=== PATIENT | female | born 1945 | race Caucasian/White ===

== ENCOUNTER → 2023-04-16 06:55 | Outpatient (REF) | payer MEDICARE, OTHER, SELFPAY ==
[2023-04-16 09:05] LABS: % Basophils 0.9 % (0-2); % Eosinophils 0.9 % (0-6); % Immature Granulocytes 1.2 % (0-0.5); % Monocytes 9.7 % (1.7-9.3); % Neutrophils 53.3 % (42.2-75.2); Absolute Basophils 0.1 10^3/uL (0-0.2); Absolute Eosinophils 0.1 10^3/uL (0-0.7); Absolute Immature Granulocytes 0.1 10^3/uL (0-0.05); Absolute Lymphocytes 1.9 10^3/uL (1.2-3.4); Absolute Monocytes 0.6 10^3/uL (0.1-0.6); Nucleated Red Blood Cells % 0 %
[2023-04-16 09:11] LABS: ALT (SGPT) 31 U/L (0-35); AST (SGOT) 33 U/L (14-36); Albumin 4.2 g/dl (3.5-5.0); Alkaline Phosphatase 53 U/L (38-126); Blood Urea Nitrogen 16 mg/dl (7-17); Calcium 9.4 mg/dl (8.4-10.2); Carbon Dioxide 27 mmol/L (22-30); Chloride 101 mmol/L (98-107); Glucose 98 mg/dl (70-99); HDL Cholesterol 78 mg/dl; LDL Cholesterol, Calculated 60 mg/dl; Potassium 4.1 mmol/L (3.5-5.1); Sodium 133 mmol/L (135-145); Total Bilirubin 0.8 mg/dl (0.2-1.3); Total Cholesterol 151 mg/dl (50-199); Total Protein 6.8 g/dl (6.3-8.2); Triglyceride 65 mg/dl (10-149); Very Low Density Lipoprotein 13 mg/dl (0-30); eGFR > 60.00
[2023-04-16 09:39] LABS: TSH Reflex To Free T4 1.99 uIU/ml (0.47-4.68)
[2023-04-16 10:11] LABS: Hematocrit 32.4 % (37.0-47.0); Hemoglobin 10.5 g/dL (12.0-16.0); Red Blood Cell Count 4.74 10^6/uL (4.20-5.40); White Blood Cell Count 7.2 10^3/uL (4.8-10.8)
[2023-04-16 10:12] LABS: Mean Corp Hgb Conc. 32.4 g/dL (33.0-37.0); Mean Corpuscular Hgb 22.2 pg (27.0-31.0); Mean Corpuscular Volume 68.4 fL (81.0-99.0); Mean Platelet Volume 10.1 fL (7.4-10.4); Platelet Count 330 10^3/uL (130-400); Red Cell Dist. Width 17.8 % (11.5-14.5)
== END ==
LOC: HWLAB 06:55
PROVIDERS: ATTENDING PHYSICIAN Nurse Practitioner Adult Health
DX: E78.00 Pure hypercholesterolemia, unspecified (principal); D56.9 Thalassemia, unspecified; E03.9 Hypothyroidism, unspecified
CPT/HCPCS: 36415; 80053; 80061; 84443; 85025

== ENCOUNTER → 2023-07-05 07:57 | Outpatient (REF) | payer MEDICARE, OTHER, SELFPAY | LOC: DHCBC/DCA 07:57 | PROVIDERS: ATTENDING PHYSICIAN Internal Medicine Cardiovascular Disease; FAMILY PHYSICIAN Nurse Practitioner Adult Health | DX: Z01.810 Encounter for preprocedural cardiovascular examination (principal); I10 Essential (primary) hypertension; D64.89 Other specified anemias; I25.10 Atherosclerotic heart disease of native coronary artery without angina pectoris; I25.84 Coronary atherosclerosis due to calcified coronary lesion | CPT/HCPCS: 78452; 93017; A9500; J2785 ==

== ENCOUNTER 2023-10-10 09:47 | Inpatient (IN) | payer MEDICARE, OTHER, SELFPAY ==
--- NOTE | 2023-09-05 11:15 | CM ---
Patient is scheduled for an elective R TKR on 10/10/23. Spoke with patient prior to surgery via telephone. Introduced role of Orthopedic Navigator. Patient reports that she lives with her sister in a bi level home. There are no steps to enter and
then eight (4-4) steps to all living areas. She may stay on the entry engineer. She currently functions independently. She has no DME and has never had VN services. PCP is Lashell Childress.
Discussed orthopedic program and post surgical plans. Reviewed anticipated length of stay and that goal is for her to return home at discharge. Also reviewed outpatient PT. Patient is in agreement with tentative plan and will go directly to
outpatient PT at [facility], [place]. She will have support from her sister and neighbor when she goes home.
Patient will complete online education.
Plan: Orthopedic Navigator will remain available to assist with the care of patient and will reassess discharge needs after surgery.
[2023-09-13 09:53] LABS: ALT (SGPT) 23 U/L (0-35); AST (SGOT) 29 U/L (14-36); Albumin 4.7 g/dl (3.5-5.0); Alkaline Phosphatase 51 U/L (38-126); Blood Urea Nitrogen 13 mg/dl (7-17); Calcium 10.1 mg/dl (8.4-10.2); Carbon Dioxide 27 mmol/L (22-30); Chloride 100 mmol/L (98-107); Glucose 87 mg/dl (70-99); Potassium 5.3 mmol/L (3.5-5.1); Sodium 135 mmol/L (135-145); Total Bilirubin 0.8 mg/dl (0.2-1.3); Total Protein 6.9 g/dl (6.3-8.2); eGFR > 60.00
[2023-09-13 12:35] LABS: Hematocrit 32.1 % (37.0-47.0); Mean Corp Hgb Conc. 31.8 g/dL (33.0-37.0); Mean Corpuscular Hgb 22.4 pg (27.0-31.0); Mean Corpuscular Volume 70.5 fL (81.0-99.0); Red Blood Cell Count 4.55 10^6/uL (4.20-5.40); Red Cell Dist. Width 17.1 % (11.5-14.5); White Blood Cell Count 7.1 10^3/uL (4.8-10.8)
[2023-09-13 12:36] LABS: Platelet Count 286 10^3/uL (130-400)
[2023-09-13 12:37] LABS: Hemoglobin 10.2 g/dL (12.0-16.0)
[2023-09-13 13:24] VITALS: BMI 29.2
[2023-10-04 12:45] VITALS: BMI 29.2
[2023-10-10] VITALS (12 sets, daily range): BP systolic 102–165; BP diastolic 54–97; PULSE 72–86; BMI 29.2
[2023-10-10] MEDS: TYLENOL 650 MG PO ×4 (08:59→23:16)
[2023-10-10] MEDS: NORMOSOL-R 1000 IV ×2 (09:00→13:57)
[2023-10-10] MEDS: MOBIC 15 MG PO (09:00)
--- NOTE | 2023-10-10 09:34 | PTCARENOTE ---
called pharmacy at 09, spoke to James. Requested patient's humate P to [facility] at 0930, was told that wouldn't be an issue.
--- NOTE | 2023-10-10 09:36 | PTCARENOTE ---
Called pharmacy regarding the Humate-P infuion and spoke with Rachelle. Reports it is still being mixed and is currently compounding and should arrive to the unit soon.
[2023-10-10 10:01] LABS: APTT 27.7 Sec (23.4-35.0); INR 1.07; PT 13.9 Sec (11.4-14.6)
[2023-10-10] MEDS: HUMATE-P (FACTOR VIII/VON WILLEBRAND) 20 UNIT IV ×2 (10:09→22:50)
[2023-10-10 12:23] LABS: Glycohemoglobin (HgbA1c) 5.2 % (4.0-5.6)
[2023-10-10] MEDS: DILAUDID 0.25 MG IV ×2 (13:34→14:15)
[2023-10-10] MEDS: DILAUDID 0.5 MG IV (13:48)
[2023-10-10] MEDS: ROXICODONE 5 MG PO (14:01)
--- NOTE | 2023-10-10 15:01 | PTCARENOTE ---
Patient admitted from [facility] post total right knee replacement.The patient rates her pain at a 5 out of 10.Vital signs are stable.Neurovascular assessment is within normal limits and ongoing.The right knee dressing is intact without drainage.The
patient is in her bed with the call roberson in reach.
--- NOTE | 2023-10-10 15:34 | OR.RPT ---
Operative Report
Operative Report
Orthopaedic Surgery Operative Note
DATE OF OPERATION: 10/10/2023
PREOPERATIVE DIAGNOSES: Osteoarthritis, right knee.
POSTOPERATIVE DIAGNOSES: Osteoarthritis, right knee.
OPERATION PERFORMED:
1) Right total knee arthroplasty (CPT 87852)
2) Intraosseous administration of analgesic (CPT 72755)
SURGEON: Pedrito Stone MD
ASSISTANTS: Wesley Geurrero PA-C who helped with patient and limb positioning and retraction
ANESTHESIA: General by anesthesia plus intraoperative infusion of morphine into the tibial metaphysis by Dr. Stone
COMPLICATIONS: None.
ESTIMATED BLOOD LOSS: 30mL
DRAINS: None
TOURNIQUET TIME: 48 minutes.
IMPLANTS:
- Deon Persona CR Femur, size 7
- Deon Persona tibia base plate, size D
- Deon Persona ultracongruent articular surface, 12 mm
- DJO [place] bone cement
INDICATIONS: The patient presented to my office with debilitating right knee pain due to osteoarthritis. We reviewed the natural history of this problem, as well as the risks, benefits, and alternatives of various treatment options. The patient
exhausted all nonoperative treatment options and wished to proceed with knee replacement surgery. The patient understood the risks which included, but were not limited to, bleeding, infection, failure to relieve pain, more pain than preop, damage to
blood vessels and nerves, need for reoperation, mechanical failure of the implants, wound healing problems, stiffness, instability, blood clot, pulmonary embolism, myocardial infarction, pneumonia, arrhythmia, CVA, and . The patient accepted
these risks and wished to proceed. All questions were answered, and informed consent was obtained.
PROCEDURE IN DETAIL: The patient was identified in the preoperative holding area. The right knee was identified as the operative site. The patient was taken in the operating room and placed in a supine position on the operating table. General
anesthesia was performed. IV antibiotics and tranexamic acid were administered. An SCD was placed on the left lower extremity. A well-padded tourniquet was placed on the proximal thigh. All bony prominences were well padded. The right lower
extremity was prepped and draped in the usual sterile fashion.
We performed a surgical time-out. An interarticular block was performed with local anesthetic with epinephrine. The limb was exsanguinated with an Esmarch bandage, then the tourniquet was inflated to 250 mmHg. I performed interosseous administration
of morphine-saline solution via a Jamshidi style intraosseous needle into the proximal medial tibial metaphysis as described by John Beauchamp MD. This was performed to aid in pain control. A midline skin incision was made followed by a medial
parapatellar arthrotomy. A subperiosteal peel was performed on the medial tibia. I excised part of the infrapatellar fat pad to improve our visualization as well as tissue over anterior femur. The patella was everted and the knee was flexed. I
excised the remnants of the anterior and posterior cruciate ligaments as well as tibial and femoral osteophytes with rongeurs.
The knee was flexed, and the extramedullary tibial cutting guide was aligned. Jay was aligned at neutral, rotation was centered on the tibial tubercle, and coronal alignment was aligned with the mechanical axis of the tibia and center of the ankle
joint. The cut height was 10mm off the lateral tibia joint surface. The guide was secured into place. The MCL and LCL were protected. The tibia surface was cut. The cut surface was inspected after removal to ensure appropriate height and slope based
on the preoperative plan. The cut was checked with a drop fausto. It was centered nicely at the ankle.
A drill was used to open the femoral canal. The intramedullary distal femoral cutting guide was inserted into the femur. This was set at 5 degrees +0. This was secured into place with three pins. The cut level was checked with an ana wing. The
distal femur was cut through the cutting guide. The IM guide was reinserted to double check that the level of resection was flush and in appropriate alignment.
Kulwant�s line and the transepicondylar axis were marked on the femur. The femoral sizing guide was applied to the anterior femur. Pins were inserted, and the 4-in-1 cutting guide was applied and secured into place. The rotation was compared to
Oxford�s line, the transepicondylar axis, and the neutral tibia cut and was found to be appropriate. The width was checked and found to be appropriate and lateralized on the femur. The anterior, posterior, and chamfur cuts were made. A lamina
black top spreader machine operator was used to open the flexion gap, and posterior osteophytes were removed with a curved osteotome. The remnant medial and lateral meniscus were also removed. I prophylactically cauterized the lateral geniculate arteries. A 10mm spacer block
was applied to the flexion gap and was noted to be balanced medially and laterally. The knee was extended, and the block showed symmetric to extension and flexion gaps.
The tibia was exposed and sized. Rotation was set in line with the tibial tubercle and congruent with the femur. The trial was secured into place with two pins. The trial femur was impacted into place, and a trial articular surface was placed. The
knee was taken through range of motion and noted to be stable throughout the arc of motion without gaping or excess tension. The patella tracked centrally throughout the arc of motion without need for further releases. No full thickness cartilage
loss on patella. It was oblonge and too small for the 29mm patellar component but also otherwise appropriate for unresurfaced.
The trials were removed. The tibia keel was prepared with the punch and the drill. The bone surfaces were irrigated with sterile saline and dried. The cement was mixed in a vacuum mixer. Cement gun was used to apply cement to the tibial surface and
the undersurface of the tibial implant. Cement was pressurized into the tibial canal and tibia surface. The tibial component was impacted into place. Excess cement was removed. Cement was applied to the femoral surface and the femoral component. The
femoral component was impacted into place, and excess cement removed. A trial articular surface was inserted, and the knee was extended while the cement polymerized. The tourniquet was let down, and meticulous hemostasis was achieved. Dilute
betadine was poured into the wound and allowed to soak for 3 minutes. The knee was irrigated with copious normal saline.
Once the cement was polymerized, the trial articular surface was removed. Any excess cement was removed. The knee was trialed, and the final articular surface was selected and inserted into the tibial locking mechanism. The knee was reduced. A fresh
drape was applied to the surgical field.
The arthrotomy was closed with 0-PDS. Once closed, an interarticular block was performed with local anesthetic with epi. The deep dermal layer was closed with 2-0 PDS, and the subcuticular skin was closed with 3-0 monocryl. A Dermabond Prineo
dressing was applied to the skin in full flexion. Once this was completely dry, a sterile waterproof dressing was applied.
The anesthesia team performed an adductor canal block in the OR. The patient awoke from anesthesia without any difficulties. The sponge and instrument counts were correct x2 at the end of the case.
Tae Stone MD
--- NOTE | 2023-10-10 16:39 | W.DS.TRANS ---
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
-
Discharge Instructions:
Sleep Apnea Risk Low
Discharge Diagnosis/Procedures R TKA Dr. Stone 10/10/23
Diet As tolerated
Activity With Walker
Driving Restrictions No driving
Bathing Restrictions OK to Shower
Instructions:
Stand-Alone Forms: Total Hip/Knee Replacement D/C
Changes to Home Medications: Yes
Discharge Medications:
DC Medications w/original date entered in [facility]
lisinopril 40 mg tablet 40 mg PO DAILY 05/24/19
rosuvastatin 5 mg tablet 5 mg PO DAILY 05/24/19
levothyroxine 75 mcg tablet (Synthroid) 2 mcg PO SAN 10/03/23
levothyroxine 75 mcg tablet (Synthroid) 75 mcg PO DAILY 10/03/23
metoprolol succinate 25 mg tablet,extended release 24 hr 50 mg PO DAILY 10/03/23
mupirocin 2 % ointment topical kit 1 applic topical BID 10/03/23
acetaminophen 325 mg capsule (Tylenol) 650 mg (2 x 325 mg) PO QID #2 caps 10/10/23
aspirin 81 mg tablet,delayed release 81 mg PO BID Blood clot prevention/tx #1 tab 10/10/23
dexamethasone 4 mg tablet 4 mg PO BID inflammation #6 tabs 10/10/23
docusate sodium 100 mg capsule (Colace) 100 mg PO BID stool softner #1 cap 10/10/23
hydromorphone 2 mg tablet 2 - 4 mg (1 - 2 x 2 mg) PO Q6H PRN 1 tab moderate pain, 2 severe #30 tabs 10/10/23
magnesium hydroxide 400 mg/5 mL oral suspension (Milk of Magnesia) 30 ml PO HS PRN Constipation #1 mL 10/10/23
ondansetron 4 mg disintegrating tablet 4 mg PO Q6H PRN n/v #20 tabs 10/10/23
sennosides 8.6 mg tablet (Senokot) 17.2 mg (2 x 8.6 mg) PO BID laxative #2 tabs 10/10/23
Home Medication Changes
aspirin 81 mg tablet,delayed release 81 mg PO BID Blood clot prevention/tx #1 tab 10/10/23�
dexamethasone 4 mg tablet 4 mg PO BID inflammation #6 tabs 10/10/23�
hydromorphone 2 mg tablet 2 - 4 mg (1 - 2 x 2 mg) PO Q6H PRN 1 tab moderate pain, 2 severe #30 tabs 10/10/23�
ondansetron 4 mg disintegrating tablet 4 mg PO Q6H PRN n/v #20 tabs 10/10/23�
Pending Results: No
[2023-10-10] MEDS: CRESTOR 5 MG PO (17:09)
[2023-10-10] MEDS: ZOFRAN 4 MG IV (17:13)
[2023-10-10 18:43] LABS: Hepatitis C Antibody Negative (Negative)
[2023-10-10] MEDS: BACTROBAN 2% OINTMENT 1 APPLIC NASAL (20:19)
[2023-10-10] MEDS: ANCEF 5 IV (20:20)
[2023-10-10] MEDS: DECADRON 4 MG PO (20:20)
[2023-10-10] MEDS: SENOKOT 17.2 MG PO (20:22)
[2023-10-10] MEDS: COLACE 100 MG PO (20:22)
[2023-10-10] MEDS: NEURONTIN 300 MG PO (21:07)
[2023-10-10] MEDS: COMPAZINE 5 MG PO (21:07)
[2023-10-11] MEDS: MAALOX 30 ML PO (00:22)
[2023-10-11 03:33] VITALS: BP 115/65
[2023-10-11] MEDS: TYLENOL 650 MG PO ×4 (04:37→16:38)
[2023-10-11] MEDS: ANCEF 5 IV (04:38)
[2023-10-11] MEDS: SYNTHROID 75 MCG PO (05:10)
[2023-10-11 07:00] VITALS: BP 114/67
[2023-10-11 08:05] LABS: Hematocrit 22.9 % (37.0-47.0); Hemoglobin 7.6 g/dL (12.0-16.0); Mean Corp Hgb Conc. 33.2 g/dL (33.0-37.0); Mean Corpuscular Hgb 22.8 pg (27.0-31.0); Mean Corpuscular Volume 68.8 fL (81.0-99.0); Mean Platelet Volume 10.4 fL (7.4-10.4); Platelet Count 222 10^3/uL (130-400); Red Blood Cell Count 3.33 10^6/uL (4.20-5.40); Red Cell Dist. Width 15.9 % (11.5-14.5); White Blood Cell Count 15.7 10^3/uL (4.8-10.8)
[2023-10-11] MEDS: ASPIRIN 325 MG PO (08:36)
[2023-10-11] MEDS: CRESTOR 5 MG PO (08:36)
[2023-10-11] MEDS: SENOKOT 17.2 MG PO (08:36)
[2023-10-11] MEDS: TORADOL 10 MG IV (08:37)
[2023-10-11] MEDS: COLACE 100 MG PO (08:37)
[2023-10-11] MEDS: BACTROBAN 2% OINTMENT 1 APPLIC NASAL (08:38)
[2023-10-11] MEDS: DECADRON 4 MG PO (08:39)
[2023-10-11] MEDS: ROXICODONE 5 MG PO ×2 (08:45→16:38)
[2023-10-11] MEDS: HUMATE-P (FACTOR VIII/VON WILLEBRAND) 20 UNIT IV (10:55)
[2023-10-11 11:00] VITALS: BP 119/64
[2023-10-11 11:01] VITALS: BP 122/55
[2023-10-11 15:00] VITALS: BP 121/65
--- NOTE | 2023-10-11 15:59 | W.PN.ORTHO ---
Today's Communication / Plan
-
d/c
Assessment
.
Distal Motor Intact: Yes
Dressing:
Clean, dry and intact.
Assessment:
von Willebrand-s/p Humate
-hgb decreasd from baseline but patient is hemodynamically stable, asymptomatic with no bleeding from incision
-we will avoid transfusion at this time given surgeon reported reaction to blood products and lack of symptoms/clinical indication
-d/c with repeat hgb outpatient
Plan
.
Surgery / Date: R TKA Dr. Stone 10/10/23
DVT Prophylaxis: Aspirin (81mg bid)
Activity:
Out of bed.
PT/OT
Discharge Plan: Home w/ Outpatient PT
Subjective
.
.:
Patient resting comfortably.
Vital Signs and Labs
.
Vital Signs and Labs:
Lab Results
10/11/23 06:34
09/13/23 06:24
Temp Pulse Resp BP Pulse Ox
98.5 F 67 16 121/65 97
10/11/23 15:00 10/11/23 15:00 10/11/23 15:00 10/11/23 15:00 10/11/23 15:00
PT 13.9 Sec (11.4-14.6) 10/10/23 09:28
INR 1.07 10/10/23 09:28
Non-invasive Hgb result: 9.7
Physical Exam
-
HEENT: No pallor, cyanosis, or jaundice. Throat clear.
NECK: Supple. No JVD.
RESPIRATORY: Lungs clear to auscultation.
CVS: S1, S2 normal. RRR.� No murmur, rub or gallop.
ABDOMEN: Soft, non-tender. No distension. BS+/normal.
EXTREMITIES: strength equal, no calf pain with palpation-no drainage aquacell
CAR INSPECTION AND REPAIR MANAGER: AOx3. No focal deficits. machine room operator grossly intact
--- NOTE | 2023-10-11 16:02 | CM ---
Addendum entered by Faith Ruelas 10/11/23 16:43:
Discharge today
Original Note:
Met with patient and her sister at the bedside; initial assessment and case management consult completed
IMM benefit explained; form signed @ 1224
Pharmacy verified: [facility] @ [address] [place] [address]
Patient reported that she lives with her sister; multilevel home; enters via garage then 12 steps up to main floor; powder room on the 1st floor; 2nd floor bath has stall shower
PLOF: patient reported that she was independent w/ADLs; ambulated with a cane; steps were a challenge; retired; does not drive
DME: cane and a RW that she was not using before hospitalization
SNF/Home Health utilization history: none
Transportation: sister will provide ride home
Plans to sleep on the sofa in the living room for the 1st week post-op
Plan: discharge to sister's home with script for Outpatient Therapy
== END 2023-10-11 16:55 | disposition home or self-care (01) | DRG 470 ==
LOC: 2 SOUTH 09:47
PROVIDERS: Physician Assistant Medical; Student in an Organized Health Care Education/Training Program; ADMITTING PHYSICIAN Orthopaedic Surgery; FAMILY PHYSICIAN Nurse Practitioner Adult Health
PROC: 0SRC0J9 Replacement of Right Knee Joint with Synthetic Substitute, Cemented, Open Approach (ICD-10-PCS; 2023-10-10)
DX: M17.11 Unilateral primary osteoarthritis, right knee (principal); D68.00 Von Willebrand disease, unspecified; I10 Essential (primary) hypertension; E05.00 Thyrotoxicosis with diffuse goiter without thyrotoxic crisis or storm; F41.9 Anxiety disorder, unspecified; M48.061 Spinal stenosis, lumbar region without neurogenic claudication; Z79.52 Long term (current) use of systemic steroids; Z79.82 Long term (current) use of aspirin; Z79.890 Hormone replacement therapy; Z79.899 Other long term (current) drug therapy; Z85.72 Personal history of non-Hodgkin lymphomas; Z92.21 Personal history of antineoplastic chemotherapy; Z92.3 Personal history of irradiation; Z87.11 Personal history of peptic ulcer disease; Z86.16 Personal history of COVID-19; Z87.891 Personal history of nicotine dependence; Z82.49 Family history of ischemic heart disease and other diseases of the circulatory system; Z83.2 Family history of diseases of the blood and blood-forming organs and certain disorders involving the immune mechanism
CPT/HCPCS: 73560; 80053; 83036; 85027; 85610; 85730; 86803; 86850; 86900; 86901; 87070; 97116; 97162; 97166; 97535; C1713; C1776; J7183

== ENCOUNTER → 2023-12-17 07:06 | Outpatient (REF) | payer MEDICARE, OTHER, SELFPAY ==
[2023-12-17 10:05] LABS: ALT (SGPT) 20 U/L (0-35); AST (SGOT) 23 U/L (14-36); Albumin 4.5 g/dl (3.5-5.0); Alkaline Phosphatase 50 U/L (38-126); Blood Urea Nitrogen 16 mg/dl (7-17); Carbon Dioxide 29 mmol/L (22-30); Chloride 98 mmol/L (98-107); Glucose 95 mg/dl (70-99); HDL Cholesterol 42 mg/dl; LDL Cholesterol, Calculated 81 mg/dl; Potassium 4.8 mmol/L (3.5-5.1); Sodium 136 mmol/L (135-145); Total Bilirubin 0.3 mg/dl (0.2-1.3); Total Cholesterol 151 mg/dl (50-199); Total Protein 7.1 g/dl (6.3-8.2); Triglyceride 140 mg/dl (10-149); Very Low Density Lipoprotein 28 mg/dl (0-30); eGFR > 60.00
[2023-12-17 10:23] LABS: Vitamin D, 25-OH*** 45.5 ng/mL (30-80)
[2023-12-17 10:36] LABS: TSH Reflex To Free T4 0.31 uIU/ml (0.47-4.68)
[2023-12-17 11:15] LABS: Free T4 1.72 ng/dl (0.78-2.19)
[2023-12-17 11:30] LABS: % Basophils 0.9 % (0-2); % Immature Granulocytes 0.5 % (0-0.5); % Lymphocytes 36.8 % (20.5-51.1); % Monocytes 12.6 % (1.7-9.3); % Neutrophils 47.2 % (42.2-75.2); Absolute Basophils 0.1 10^3/uL (0-0.2); Absolute Eosinophils 0.1 10^3/uL (0-0.7); Absolute Lymphocytes 2.3 10^3/uL (1.2-3.4); Absolute Monocytes 0.8 10^3/uL (0.1-0.6); Hematocrit 33.3 % (37.0-47.0); Hemoglobin 10.4 g/dL (12.0-16.0); Mean Corp Hgb Conc. 31.2 g/dL (33.0-37.0); Mean Corpuscular Hgb 20.6 pg (27.0-31.0); Mean Corpuscular Volume 65.8 fL (81.0-99.0); Mean Platelet Volume 10.2 fL (7.4-10.4); Nucleated Red Blood Cells % 0 %; Platelet Count 337 10^3/uL (130-400); Red Blood Cell Count 5.06 10^6/uL (4.20-5.40); Red Cell Dist. Width 15.4 % (11.5-14.5); White Blood Cell Count 6.4 10^3/uL (4.8-10.8)
== END ==
LOC: HWLAB 07:06
PROVIDERS: ATTENDING PHYSICIAN Nurse Practitioner Adult Health
DX: E03.9 Hypothyroidism, unspecified (principal); E55.9 Vitamin D deficiency, unspecified; Z86.39 Personal history of other endocrine, nutritional and metabolic disease; R00.0 Tachycardia, unspecified
CPT/HCPCS: 36415; 80053; 80061; 82306; 84439; 84443; 85025

== ENCOUNTER 2024-01-16 20:24 | Inpatient (IN) | payer MEDICARE, OTHER, SELFPAY ==
[2024-01-16 17:48] VITALS: BP 150/94
[2024-01-16 18:28] LABS: PT 13.7 Sec (11.4-14.6)
[2024-01-16 18:29] LABS: APTT 32.1 Sec (23.4-35.0)
[2024-01-16 18:34] LABS: ALT (SGPT) 17 U/L (0-35); AST (SGOT) 23 U/L (14-36); Albumin 4.5 g/dl (3.5-5.0); Alkaline Phosphatase 65 U/L (38-126); Blood Urea Nitrogen 16 mg/dl (7-17); Calcium 9.8 mg/dl (8.4-10.2); Carbon Dioxide 23 mmol/L (22-30); Chloride 98 mmol/L (98-107); Glucose 86 mg/dl (70-99); Potassium 4.1 mmol/L (3.5-5.1); Sodium 135 mmol/L (135-145); Total Bilirubin 0.4 mg/dl (0.2-1.3); Total Protein 7.3 g/dl (6.3-8.2); eGFR > 60.00
[2024-01-16 19:02] LABS: % Basophils 0.7 % (0-2); % Eosinophils 0.9 % (0-6); % Immature Granulocytes 0.6 % (0-0.5); % Lymphocytes 30.6 % (20.5-51.1); % Monocytes 12.5 % (1.7-9.3); % Neutrophils 54.7 % (42.2-75.2); Absolute Basophils 0.1 10^3/uL (0-0.2); Absolute Eosinophils 0.1 10^3/uL (0-0.7); Absolute Immature Granulocytes 0.1 10^3/uL (0-0.05); Absolute Lymphocytes 2.8 10^3/uL (1.2-3.4); Absolute Monocytes 1.1 10^3/uL (0.1-0.6); Absolute Neutrophils 4.9 10^3/uL (1.4-6.5); Hematocrit 31.3 % (37.0-47.0); Hemoglobin 9.9 g/dL (12.0-16.0); Mean Corp Hgb Conc. 31.6 g/dL (33.0-37.0); Mean Corpuscular Hgb 20.4 pg (27.0-31.0); Mean Corpuscular Volume 64.5 fL (81.0-99.0); Mean Platelet Volume 9.6 fL (7.4-10.4); Nucleated Red Blood Cells % 0 %; Platelet Count 315 10^3/uL (130-400); Red Blood Cell Count 4.85 10^6/uL (4.20-5.40); Red Cell Dist. Width 15.4 % (11.5-14.5)
--- NOTE | 2024-01-16 19:16 | ED.GENMED ---
History of Present Illness
General
Chief Complaint: Cardiac Symptoms
Source: patient and physician
Exam Limitations: none
Time Seen by Provider: 01/16/24 17:54
Nursing documentation reviewed up to this point in time: agreed with
History of Present Illness
History of Present Illness:
78-year-old female presents emergency department due to episodic dizziness. She has had multiple pauses. She is also had atrial fibrillation with RVR. She has had pauses greater than 5 seconds, the longest 6.2 seconds. Patient was directed to
the emergency department by Dr. Fernandez.
Past History
Past History
ED Past Medical History: Arrthythmia, HTN, Hypercholesterolemia and Hypothyroidism
ED Past Surgical History: Orthopedic and Other (Thyroidectomy)
Social History
Tobacco: Non-smoker
Alcohol: Occasional
Drug: None
Personal:
Living: with family
Review of Systems
Review of Systems
Allergies reviewed?: Yes
All Other Systems: Not applicable
Constitutional: Reports no symptoms
EENT: Reports no symptoms
Respiratory: Reports no symptoms
Cardiac: Reports palpitations and syncope
ABD/GI: Reports no symptoms
: Reports no symptoms
Musculoskeletal: Reports no symptoms
Skin: Reports no symptoms
Neurological: Reports dizzy
Endocrine: Reports no symptoms
Hematologic/Lymphatic: Reports no symptoms
Psychiatric: Reports no symptoms
Phy Exam
Physical Exam
Physical Exam:
Physical Exam
General: no apparent distress, not acutely ill
Neck: supple. no meningeal signs. normal posterior pharynx
Heart: s1/s2 regular rate and rhythm, no murmur. equal radial
pulses.
HEENT: Pupils equal round reactive to light, EOMI
Lungs: no acute respiratory distress. clear bilaterally
Abdomen: normal bowel sounds. not tender. no CVAT
Neuro: alert and oriented. no focal neurological deficits cranial nerves II through XII intact
Skin: no rash
Psychiatric: well kept. interactive and cooperative
Extremities: no edema. no calf tenderness. negative homans. good distal pulses
Course
Orders/Labs/Results
Orders:
Orders
01/16/24 17:49
EKG [Electrocardiogram (*1)] Urgent
Reason for Study: Palpitations
EKG- Treatment ONCE
01/16/24 17:55
Cardiac Monitoring- Treatment ONCE
IV Insert/Care/Rem.- Treatment PRN
01/16/24 18:09
Complete Blood Count/With Diff Urgent
Comprehensive Metabolic Panel Urgent
PTT Urgent
Prothrombin Time Urgent
Abnormal Lab Results
01/16/24
18:09
Hgb 9.9 L g/dL
(12.0-16.0)
Hct 31.3 L %
(37.0-47.0)
MCV 64.5 L fL
(81.0-99.0)
MCH 20.4 L pg
(27.0-31.0)
MCHC 31.6 L g/dL
(33.0-37.0)
RDW 15.4 H %
(11.5-14.5)
Abs Immat Gran (auto) 0.1 H 10^3/uL
(0-0.05)
Absolute Monos (auto) 1.1 H 10^3/uL
(0.1-0.6)
Immature Gran % 0.6 H %
(0-0.5)
Monocytes % 12.5 H %
(1.7-9.3)
Creatinine 0.5 L mg/dL
(0.6-1.0)
01/16/24 18:09
01/16/24 18:09
Vital Signs
Initial and Last Documented VS:
Initial Vital Signs
Temp Pulse Resp Pulse Ox
98.9 F 76 16 98
01/16/24 17:44 01/16/24 17:44 01/16/24 17:44 01/16/24 17:44
Last Documented Vital Signs
Temp Pulse Resp BP Pulse Ox
98.9 F 64 17 150/94 98
01/16/24 17:44 01/16/24 18:18 01/16/24 18:15 01/16/24 17:48 01/16/24 18:15
MDM/Problems Addressed
Differential Diagnosis Includes:
Sinus arrhythmia, atrial fibrillation
MDM/Problems Addressed:
78-year-old female with atrial fibrillation and sinus pauses. Syncope episodes. Admit for further evaluation, and likely pacemaker.
Chronic conditions affecting care: Arrhythmia
Acute Exacerbation and/or Progression of Chronic Illness: Arrhythmia
*Pulse Oximetry
Patient hypoxic: no
*EKG
Interpreted by ED Provider?: Yes
EKG Intrepretation Date: 01/16/24
EKG Intrepretation Time: 18:04
Interpretation: abnormal
Comparison EKG: no changes
Heart Rate: 68
Rate: normal
Rhythm: sinus
[place]: normal axis
Interval: normal interval
QRS Pattern: normal QRS
Ischemia: non-specific ST changes
*Wall Attendant Interpretation
Rate: normal
Interpretation: normal
Heart Rate: 68
Rhythm: sinus
*Critical Care Note
Total Time (30-74mins, 75-104mins- exclusive of procedures): Not Applicable
Patient Management
Social determinants of health affecting care: Living situation and Strong social support
Discussion with other providers: Hospitalist and Assistant Professor Of German (Cardiology)
Escalation/DeEscalation of care consider admission/obs:
Admit indicated
ED Attending Note
-
Portions of this chart may have been created with voice recognition software.� Occasional wrong word or��sound alike� substitutions may have occurred due to the inherent limitations of voice recognition software.
Discharge Plan
Departure
Patient Disposition: Admit
Date of Disposition: 01/16/24
Time of Disposition: 19:20
Admit to: IVU
Presentation/result/management discussed w/ accepting MD/DO: Hospitalist
Patient with high blood pressure during this ER visit?: Yes
Condition: Good
Discharge Problem:
Paroxysmal atrial fibrillation with conversion pauses
Prescriptions:
No Action
lisinopril 40 MG tablet
40 mg PO DAILY
rosuvastatin 5 MG tablet
5 mg PO DAILY
metoprolol succinate 25 MG tablet extended release 24 hr
50 mg PO DAILY
levothyroxine [Synthroid] 75 mcg Tablet
75 mcg PO DAILY
Rx Instructions:
except saturday
levothyroxine [Synthroid] 75 mcg Tablet
2 mcg PO SAN
mupirocin 2 % Ointment Kit
1 applic TOPICAL BID
docusate sodium [Colace] 100 mg capsule
100 mg PO BID Qty: 1 0RF
hydromorphone 2 mg tablet
2 - 4 mg PO Q6H PRN (Reason: 1 tab moderate pain, 2 severe) Qty: 30 0RF
Rx Instructions:
Dx orthopedic surgery
Ongoing therapy
magnesium hydroxide [Milk of Magnesia] 400 mg/5 mL suspension
30 ml PO HS PRN (Reason: Constipation) Qty: 1 0RF
dexamethasone 4 mg tablet
4 mg PO BID Qty: 6 0RF
Rx Instructions:
take with food
post-op use only
sennosides [Senokot] 8.6 mg tablet
17.2 mg PO BID Qty: 2 0RF
ondansetron [ondansetron] 4 mg tablet,disintegrating
4 mg PO Q6H PRN (Reason: n/v) Qty: 20 0RF
Rx Instructions:
take 1/2h b/f pain med if recurrent nausea
allow to dissolve in mouth w/o water
acetaminophen [Tylenol] 325 mg capsule
650 mg PO QID Qty: 2 0RF
aspirin 81 mg tablet,delayed release (DR/EC)
81 mg PO BID Qty: 1 0RF
Referrals:
Lashell Childress CRNP [Family Provider] -
Interventions
Interventions:
*Risk Screen - Suicide Last Done: 01/16/24 17:44
*Neglect/Abuse Screening Last Done: 01/16/24 17:44
ED- Fall Risk Assessment Last Done: 01/16/24 18:19
ED- Pulmonary Assessment Last Done: 01/16/24 18:19
ED- Cardiac Assessment Last Done: 01/16/24 18:19
Discharge Date and Time
Print Language: VENEZUELAN
--- NOTE | 2024-01-16 20:09 | HPS.HSE ---
Family Physician
-
Family Physician: Lashell Childress
Chief Complaint
-
Dizziness
History of Present Illness
Patient is a 78 y/o female past medical history of Grave's disease, Van Willebrand Disease, and Hypertension who presents with dizziness. Patient has been undergoing work-up as outpatient for episodes of dizziness. She recently completed a two week
monitoring engineer which revealed episodes of atrial fibrillation with rapid ventricular response with heart rates in the 160s with symptomatic conversion pauses. She was referred to the ED for evaluation.
Medical History
Past Medical History
Past Medical History: Reports Other
Additional Past Medical History:
Grave's Disease
Thalassemia
Von Willebrand's Disease
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
Left Breast Cancer
Essential Hypertension
Hyperlipidemia
Past Surgical History: Reports Other
Additional Past Surgical History:
Right Total Knee Replacement
Thyroidectomy
Left Breast Lumpectomy
Social History
Tobacco: Former Smoker (Quit in the 1970s)
Alcohol: Other (Patient reports she was drinking one bottle of wine nightly up until recently when her dizziness started)
Family History
Family History: Not pertinent
Allergies / Home Medications
Allergies reflects when Allergies were last updated in [facility].
Home Medications with original date entered in [facility]
Allergy/Medication List:
Allergies
Allergy/AdvReac Type Severity Reaction Status Date / Time
Penicillins Allergy Unknown Verified 10/03/23 08:33
Sulfa (Sulfonamide Allergy Unknown Verified 10/03/23 08:33
Antibiotics)
Home Medications
lisinopril 40 mg tablet 40 mg PO DAILY Blood Pressure 05/24/19
rosuvastatin 5 mg tablet 5 mg PO DAILY High Cholesterol 05/24/19
levothyroxine 75 mcg tablet (Synthroid) 75 mcg PO DAILY Thyroid 10/03/23
metoprolol succinate 25 mg tablet,extended release 24 hr 25 mg PO DAILY Heart Failure 10/03/23
doxycycline hyclate 100 mg capsule 100 mg PO BID 01/16/24
Review of Systems
-
A 12 point ROS was completed and negative except as noted: Yes
Constitutional: Denies Fever or Chills
Respiratory: Denies Cough or Trouble Breathing
Cardiac: Reports See HPI
Physical Exam
Vital Signs
Vital Signs
Temp Pulse Resp BP Pulse Ox
98.9 F 64 17 150/94 98
01/16/24 17:44 01/16/24 18:18 01/16/24 18:15 01/16/24 17:48 01/16/24 18:15
Physical Exam
General: Comfortable and Conversant
HEENT: Anicteric and Moist mucous membranes
Respiratory: Clear and Non Labored Respirations
Cardiac: S1/S2 and Regular Rhythm
GI: Soft and Non Tender
Rectal: Deferred by Provider
Musculoskeletal: No Clubbing, No Cyanosis and No Edema
Skin: Warm and Dry
Neuro: Awake, Alert, Oriented and Nonfocal/grossly intact
Laboratory Results
-
01/16/24 18:09
01/16/24 18:09
Laboratory Results
PT 13.7 Sec (11.4-14.6) 01/16/24 18:09
INR 1.00 01/16/24 18:09
APTT 32.1 Sec (23.4-35.0) 01/16/24 18:09
Total Bilirubin 0.4 mg/dl (0.2-1.3) 01/16/24 18:09
AST 23 U/L (14-36) 01/16/24 18:09
ALT 17 U/L (0-35) 01/16/24 18:09
Alkaline Phosphatase 65 U/L (38-126) 01/16/24 18:09
Data Reviewed
-
Lab Data: Labs Reviewed by me
Impression/Plan
-
Paroxysmal Atrial Fibrillation with Conversion Pauses
-Cardiology Consulted
-Monitor on Telemetry
-NPO after midnight for possible permanent pacemaker tomorrow following Hematology evaluation
Von Willebrand Disease
-Consult Hematology for pre-procedure recommendations and anticoagulation recommendations for a-fib
Essential Hypertension
-Continue lisinopril
Post-Surgical Hypothyroidism
-Continue levothyroxine
Recent Right Upper Eyelid Stye
-Complete coarse of doxycycline
Hx Non-Hodgkin Lymphoma involving Stomach s/p Chemotherapy and Radiation
Hx Breast Cancer s/p Left Lumpectomy
DVT proph: SCDs
Code Status: Full Code
--- NOTE | 2024-01-16 20:27 | W.PN.UPDATE ---
Update Note
Progress Note Update
Patient seen in conjunction with EXPERIMENT[employer]CH[employer]IC [employer]. I agree with the findings on history and physical. I agree with the assessment and plan unless stated otherwise.
This is a 78-year-old female who has a past medical history significant for hypothyroidism status post thyroid surgery, hyperlipidemia, thalassemia and history of von Willebrand disease diagnosed several years ago and followed by hematology presents
to ED via cardiology (sent in by Dr. Bowen) for palpitations and sinus pauses. She reports a longstanding history of dizziness which she describes as sudden onset of weakness and palpitations. She put off testing to left that she had orthopedic
surgery. She recently completed a 10-day monitoring and the report showed proximal atrial fibrillation with sinus pauses during transitions. She had pauses for as long as 6 seconds on occasions. Once this was determined she was referred to the
emergency department immediately. Patient had no syncopal episodes. She had no recent falls. She denies any chest pain. She has no history of strokes. She denies history of CHF or diabetes.
In the ED she was afebrile, hemodynamically stable and in no acute distress. ECG shows normal sinus rhythm at a rate of 68 with no ischemic findings. Her labs are unremarkable except Hgb 9.9, baseline 10.4.
Paroxysmal atrial fibrillation - Unclear burden of afib but findings suggestive of high risk sinus pauses between transitions. Patient already on metprolol succinate. Currently asymptomatic
- admit to telemetry
- NPO after midnight for possible PPM in am
- cardiology consult.
- IR consult if symptomatic
- h/o vwF deficiency requiring Humate P during surgery, hematology consultation.
- she is rate controlled currently, [id number] = 4. However due to coagulopathy, will hold off on AC for now pending hematology consult.
- Thalassemia Hgb 9.9, down from 10.4 a month ago. No signs of acute bleed.
- continue doxycycline per recent outpatient dgx of cellulitis
DVT PPX - SCDs
Code status - full code
[2024-01-16 21:38] VITALS: BP 101/62
[2024-01-16 21:50] VITALS: BMI 27.1
[2024-01-16] MEDS: MELATONIN 3 MG PO (22:11)
[2024-01-16 23:10] VITALS: BP 87/44
[2024-01-16 23:23] VITALS: BP 100/62
[2024-01-17] VITALS (8 sets, daily range): BP systolic 118–143; BP diastolic 62–77; BMI 27.1; BMI 26.9
[2024-01-17] MEDS: SYNTHROID 75 MCG PO (06:00)
[2024-01-17] MEDS: VIBRAMYCIN 100 MG PO ×2 (08:08→20:27)
[2024-01-17] MEDS: ZESTRIL 40 MG PO (08:08)
[2024-01-17] MEDS: CRESTOR 5 MG PO (08:10)
[2024-01-17 08:17] LABS: Blood Urea Nitrogen 17 mg/dl (7-17); Calcium 9.6 mg/dl (8.4-10.2); Carbon Dioxide 24 mmol/L (22-30); Chloride 101 mmol/L (98-107); Estimated Creatinine Clearance 60 ml/min; Glucose 93 mg/dl (70-99); Magnesium 2.1 mg/dl (1.6-2.3); Potassium 4.5 mmol/L (3.5-5.1); Sodium 138 mmol/L (135-145); eGFR > 60.00
[2024-01-17 08:50] LABS: TSH Reflex To Free T4 0.64 uIU/ml (0.47-4.68)
--- NOTE | 2024-01-17 08:53 | CON.CAR ---
Addendum entered and electronically signed by Tomas Waddell MD 01/17/24 10:53:
I saw and examined the patient.
The TRANSFORMER MOLDER's note was reviewed and I agree with the note.
Comment:
1. Sick sinus syndrome. Symptomatic offset pauses at the termination of A-fib. Class I indication for pacemaker implantation.
2. Paroxysmal atrial fibrillation. She should not receive anticoagulation for at least 3 days after pacemaker placement to minimize the risk of bleeding. The decision to institute chcf anticoagulation will be more challenging because of the
patient's bleeding diathesis. Institution of anticoagulation may be deferred to the outpatient setting after discussion with the patient's outpatient clinical immunologist and her outpatient edger technician Dr. Raphael Fernandez. Watchman may be an option.
3. I have coordinated with hematology here and pharmacy. We will replicate the strategy used for the patient's knee replacement by administering factor to minimize the risk of bleeding. The patient understands that there will be an increased risk
of bleeding including into the pericardial space resulting in tamponade.
Original Note:
Consultation
Consultation Request
Date/Time Consultation Requested: 01/16/24 9:15p
Date/Time Consultation Performed: 01/17/24 8a
Requesting Provider: Nataly Escalante PA-C
Performing Provider: SANDRA Daniel for Dr. Waddell
Reason for Consultation: symptomatic conversion pauses, Afib with RVR
Medical History
-
Chief Complaint: lightheadedness
History of Present Illness:
Mrs. Acosta is a 78 yo female with HTN, thalassemia, Von Willebrands disease (followed by Dr. Zafar at [facility]), and hypothyroid, who was sent to the ER by Dr. Fernandez for Afib with RVR and symptomatic conversion pauses up to 6 seconds noted on an
outpatient awake overnight monitor. She notes mild intermittent lightheadedness. We are consulted for pacemaker implant. Currently she denies any cardiac symptoms.
Past Medical History
Past Medical History: Other (as above)
Past Surgical History: Orthopedic (right TKA September 2023)
Social History
Tobacco: Non-Smoker
Alcohol: Occasional
Personal: Single
Living: With Family (sister)
Family History
Family History: Reviewed & Not Pertinent
Allergies / Home Medications
Allergy/AdvReac Type Severity Reaction Status Date / Time
Penicillins Allergy Unknown Verified 10/03/23 08:33
Sulfa (Sulfonamide Allergy Unknown Verified 10/03/23 08:33
Antibiotics)
�Medication �Instructions �Recorded �Confirmed �Type
lisinopril 40 mg tablet 40 mg PO DAILY Blood Pressure 05/24/19 01/16/24 History
rosuvastatin 5 mg tablet 5 mg PO DAILY High Cholesterol 05/24/19 01/16/24 History
levothyroxine 75 mcg tablet 75 mcg PO DAILY Thyroid 10/03/23 01/16/24 History
(Synthroid)
metoprolol succinate 25 mg 25 mg PO DAILY Heart Failure 10/03/23 01/16/24 History
tablet,extended release 24 hr
doxycycline hyclate 100 mg capsule 100 mg PO BID Infection 01/16/24 01/16/24 History
Review of Systems
-
History Source: Patient
All other systems: Negative unless noted
Physical Exam
Vital Signs
Temp Pulse Resp BP Pulse Ox
99.4 F 60 16 124/77 98
01/17/24 08:25 01/17/24 08:25 01/17/24 08:25 01/17/24 08:25 01/17/24 08:25
Lab Results
01/17/24 06:36
Physical Exam
General: Well Developed, Well Nourished and No Apparent Distress
HEENT: Normocephalic, Anicteric and Moist Mucous Membranes
Respiratory: Clear and Non Labored Respirations
Cardiac: S1/S2 and Regular Rhythm
Breast: Deferred by me
GI: Soft, Non Tender, Non Distended and Normal Bowel Sounds
Rectal: Deferred by Provider
Genito-urinary: No Costovertebral Tender
Musculoskeletal: No Clubbing, No Cyanosis and No Edema
Skin: Warm and Dry
Neuro: AO x 3
Psych: Calm
Impression / Plan
-
Afib - new onset on outpatient awake overnight monitor.
- rapid ventricular response and tachybrady noted.
- now in NSR.
- symptomatic conversion pauses up to 6 seconds noted on outpatient monitor.
- [id number] score is 4 (female, age, HTN), will discuss OAC therapy with hematology.
- check echo today.
Conversion pauses - symptomatic.
- up to 6 seconds.
- recommend pacemaker today.
HTN - stable on meds, continue.
Von Willebrands disease - chronic.
- followed by hematology Dr. Zafar at [facility].
- also h/o thalassemia.
- hematology consulted.
Data Reviewed
-
EKG: Tracing Personally Visualized and interpreted (NSR)
Medical Tests (Nuc Med, Echo etc): Report Reviewed by me (Tereza 06/2023 EF 65%, normal perfusion )
Labs: Labs Reviewed by me
Old Records: Reviewed
[2024-01-17 09:04] LABS: Hematocrit 32.2 % (37.0-47.0); Hemoglobin 10.3 g/dL (12.0-16.0); Mean Corpuscular Volume 65.6 fL (81.0-99.0); Platelet Count 323 10^3/uL (130-400); Red Blood Cell Count 4.91 10^6/uL (4.20-5.40); Red Cell Dist. Width 15.6 % (11.5-14.5); White Blood Cell Count 7.3 10^3/uL (4.8-10.8)
--- NOTE | 2024-01-17 10:37 | W.PN.HOSP.TC ---
Addendum entered and electronically signed by Charan Gagnon MD 01/18/24 00:13:
Attending Addendum-
I saw and evaluated the patient. I reviewed the resident�s note and agree with findings and plan as documented in the resident�s note. Sub: Seen post pacer insertion. Pain well controlled. No complaints. Full 12 point ROS reviewed and negative
except as documented Exam: Vitals reviewed in chart GEN-NAD heart RRR chest pacer implant site bandaged pulses intact lungs clear abd soft LE no edema
# Paroxysmal Atrial Fibrillation with @ 6 second Pause
- S/P PPM implant on 01/16 Dr. Waddell
- given humate P per protocol
- Monitor on Telemetry
- hold eliquis and metoprolol
- d/w hematology when to restart eliquis
- Limited echo post pacemaker. Normal global LV systolic function. No pericardial effusion s/p pacemaker
- possible repeat echo in am as patient high risk bleed
# Von Willebrand Disease
- given humate P per protocol
- monitor for bleeding
- hematology on board
# Essential Hypertension
-Continue lisinopril
# Post-Surgical Hypothyroidism
-Continue levothyroxine
# Recent Right Upper Eyelid Stye
-Complete coarse of doxycycline
# Hx Non-Hodgkin Lymphoma involving Stomach s/p Chemotherapy and Radiation
# Hx Breast Cancer s/p Left Lumpectomy
DVT proph: SCDs
Code Status: Full Code
Dispo DC home in AM
Time spent coordinating care, review of plan of care with resident, personally reviewed records in EMR, med rec, consults, notes, labs, radiology, d/w nursing famly and cards� 59 mins
Original Note:
Today's Communication/Plan
-
Plan for discharge tomorrow when cleared from cards.
Continue doxycycline, levothyroxine, lisinopril, metoprolol succinate, rosuvastatin.
Assess for shortness of breath and chest pain postprocedure.
Assessment / Plan
Assessment / Plan
[id number]-oomy-old female with past medical history significant for hypothyroidism s/p surgery, recent diagnosis of A-fib with sinus pauses greater than 6 seconds, essential hypertension, thalassemia, and von Willebrand disease presents to the
hospital for pacemaker placement.
Plan-
Paroxysmal A-fib with conversion pauses-
Cardiology consulted, plan is to place the patient on pacemaker in the known.
[id number] score - 4
Complicated for anticoagulation given her history of von Willebrand disease and thalassemia.
Hematology consulted to assess further risk of bleeding during and after the procedure.
Von Willebrand disease-
Hematology plans to give her recombinant factor prior to procedure.
Heme on board, appreciate inputs.
Essential hypertension-
Continue lisinopril.
Postsurgical hypothyroidism-
Continue levothyroxine.
Recent right upper eyelid stye
Patient on doxycycline.
DVT prophylaxis-SCD.
CODE STATUS-full code
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
Non-Hodgkin's lymphoma in remission s/p chemotherapy and radiation.
History of breast cancer s/p left lumpectomy in remission.
Anticipated Discharge: Within 24 hours
Subjective/Interval History
-
Date of Service: January 17, 2024
Overnight patient denies having any symptoms. She reports feeling fine for
Objective Data
-
Labs:
Laboratory Results
01/17/24
06:36
WBC 7.3
Hgb 10.3 L
Hct 32.2 L
Plt Count 323
Sodium 138
Potassium 4.5
Chloride 101
Carbon Dioxide 24
BUN 17
Creatinine 0.5 L
Glucose 93
Calcium 9.6
Vital Signs:
Vital Signs
Temp Pulse Resp BP Pulse Ox
99.4 F 60 16 124/77 98
01/17/24 08:25 01/17/24 08:25 01/17/24 08:25 01/17/24 08:25 01/17/24 08:25
I&O
01/16/24 01/17/24 01/18/24
06:59 06:59 06:59
Intake Total 480 / 480
Balance 480 / 480
Review of Systems
-
History Source: Patient
All other systems: Reviewed and negative
Constitutional: Reports No Symptoms
EENT: Reports No Symptoms Reported
Respiratory: Reports No Symptoms
Cardiac: Reports No Symptoms
Abdomen/GI: Reports No Symptoms
Breast: Reports No Symptoms
Genitourinary: Reports No Symptoms
Musculoskeletal: Reports No Symptoms
Skin: Reports No Symptoms
Neuro: Reports No Symptoms
Endocrine: Reports No Symptoms
Hematologic / Lymphatic: Reports No Symptoms
Allergy / Immunology: Reports No Symptoms
Physical Exam
-
General: No Apparent Distress and Comfortable
HEENT: Moist Mucous Membranes
Respiratory: Clear to Auscultation and Crackles (In bilateral lower lobes.); Negative Wheezes, Rales or Rhonchi
Cardiac: S1/S2 and Irregular Rhythm; Negative Murmur, Rub or Gallop
GI: Soft, Nontender, Nondistended and Normal Bowel Sounds
Musculoskeletal: No Clubbing, No Cyanosis and No Edema
Skin: Warm
Neuro: No Motor Deficits
Psych: Calm
Data Reviewed
-
Medical Tests (Nuc Med, Echo etc): Image personally visualized and interpreted and Report Reviewed by me
Labs: Labs Reviewed by me and Discussed with Physician
--- NOTE | 2024-01-17 11:56 | PTCARENOTE ---
received pt from 318-2 to pathology laboratory aide recovery for pre op administration of meds . Pt awake alert and oriented x 3 . lungs clear w good effort. no complaints .vss
[2024-01-17 11:57] LABS: Hepatitis C Antibody Negative (Negative)
[2024-01-17] MEDS: VANCOCIN 200 IV (12:20)
[2024-01-17] MEDS: HUMATE-P (FACTOR VIII/VON WILLEBRAND) 25 UNIT IV (12:23)
--- NOTE | 2024-01-17 12:25 | PTCARENOTE ---
iv meds started per orders. will continue to monitor by charge master specialist erica and jarret atkinson
--- NOTE | 2024-01-17 15:00 | CON.ONC ---
Impression
Impression
sick sinus syndrome/ afib - s/p pacemaker
vWD - unclear subtype w/ bleeding w/ multiple prior procedures - prophylaxis w/ Humate P
Plan
Plan
1. von Willebrand Disease - unclear subtype - bleeding disorder w/ bleeding complications from past procedures
-the patient recently underwent right total knee arthroplasty at [facility] w/o bleeding complications w/ the use of Humate P prior to procedure and then every 12 hours x2 additional doses post-op
-would agree w/ following similar protocol for pacemaker
-Humate P was given pre-operatively
-would repeat Humate P dosing - 2nd dose 12 hours post-operatively and consider 3rd dose 12 hours after pending f/u labs/ CBC
-monitor CBC
-follow clinically
Patient History
History of Present Illness
78y/o female seen in hematology consultation today regarding h/o von Willbrand's disease, unclear subtype, as well as chronic microcytic anemia w/ beta thalassemia trait.
The patient has been evaluated in the past by hematology, due to a h/o bleeding w/ prior procedures. She has been most recently followed by Dr. Landeros at [facility]. She has been seen in the past w/ Dr. Macias as well as Dr. Mercado at
[facility]. VWD testing available for review - in 2017 revealed normal von Willebrand factor antigen level of 63%, low ristocetin co-factor activity of 38%, normal Factor VIII level of 76%, and normal vW factor multimers. Repeat risotcetin cofactor
activity in 2018 was also low at 39%. Platelet aggregation studies in 2018 were normal.
She was seen at [facility] by Dr. Sheppard in 2019, as well, who suggested additional testing, which was not completed.
Per records her bleeding history started w/ a tonsillectomy in childhood, after which she experienced excessive bleeding. In 2004, she underwent a thyroidectomy w/ post-operative bleeding at [facility], where she was diagnosed w/ 'borderline'
vWD. 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 In 2008, she underwent left hand surgery w/ vWF concentrate given, and no bleeding. In 2017, she had a left breast biopsy w/
no bleeding.
More recently, she underwent knee surgery at [facility], right total knee arthroplasty, receiving Humate P, both perioperatively as well as q. 12 hours for one day postoperatively. She did not experience excessive bleeding w/ that procedure. She was
placed on aspirin post-operative for DVT prophylaxis w/o significant issues.
She is now admitted, post pacemaker placement. She received Humate P prior to procedure.
Clinically, she is doing decently post-procedure. Pressure dressing in place. No SOB or chest pain.
Past-Medical/Surgical History
PMH:
von Willebrand disease - unclear subtype - receives Humate P w/ procedures
beta thalassemia trait
chronic microcytic anemia
hypothyroidism
afib
sick sinus syndrome
PSH:
tonsillectomy - childhood w/ bleeding
thryoidectomy - 2004 - w/ bleeding - dx vWD - [facility]
orbital decompression - 2005 - received vW factor replacement
left hand surgery - 2008 - received vW factor replacement - no bleeding
left breast biopsy - 2017 no factor - no bleeding
dental extraxtion - 2017 - no factor - no bleeding
colonoscopy - 2018 - DDAVP nasal spay - no bleeding w/polpectomy
SH: no tobacco, no significant ETOH
FH: thalassemia
Patient Medication
�Medication �Instructions �Recorded �Confirmed �Last Taken �Type
lisinopril 40 mg tablet 40 mg PO DAILY Blood Pressure 05/24/19 01/16/24 01/16/24 History
rosuvastatin 5 mg tablet 5 mg PO DAILY High Cholesterol 05/24/19 01/16/24 01/16/24 History
levothyroxine 75 mcg tablet 75 mcg PO DAILY Thyroid 10/03/23 01/16/24 01/16/24 History
(Synthroid)
metoprolol succinate 25 mg 25 mg PO DAILY Heart Failure 10/03/23 01/16/24 01/16/24 History
tablet,extended release 24 hr
doxycycline hyclate 100 mg capsule 100 mg PO BID Infection 01/16/24 01/16/24 01/16/24 History
Active Medications
Generic Name Dose Route Start Last Admin
Trade Name Freq PRN Reason Stop Dose Admin
Acetaminophen 650 mg 01/16/24 21:17
Acetaminophen 325 Mg Tablet PO 02/13/24 21:16
Q4HPRN PRN
mild pain/ fever>100.5F
Doxycycline Hyclate 100 mg 01/17/24 08:00 01/17/24 08:08
Doxycycline 100 Mg Capsule PO 100 mg
BID AMANDA Administration
Cefazolin Sodium 1 gram in 5 mls @ 60 mls/hr 01/17/24 20:00
Ancef IV 01/18/24 04:04
Q8H AMANDA
Levothyroxine Sodium 75 mcg 01/17/24 06:00 01/17/24 06:00
Levothyroxine 75 Mcg Tablet PO 02/14/24 05:59 75 mcg
DAILY @ 0600 AMANDA Administration
Lisinopril 40 mg 01/17/24 08:00 01/17/24 08:08
Lisinopril 20 Mg Tablet PO 02/14/24 07:59 40 mg
DAILY AMANDA Administration
Rosuvastatin Calcium 5 mg 01/17/24 08:00 01/17/24 08:10
Rosuvastatin (Crestor) 5 Mg Tablet PO 02/14/24 07:59 5 mg
DAILY AMANDA Administration
Sodium Chloride 0 flush 01/16/24 22:00
Sodium Chloride 0.9% (Flush) Syringe IV 02/13/24 21:59
PER PROTOCOL AMANDA
Review of Systems
-
A ROS was obtained w/ findings as per HPI.
Physical Exam
-
General: Well Developed and No Apparent Distress
HEENT: Negative Jaundice
Cardiology: Normal Sinus Rhythm
Pulmonary: Clear
Extremities: No C/C/E
Neurology: Non Focal
Labs
Lab Results
WBC 7.3 10^3/uL (4.8-10.8) 01/17/24 06:36
RBC 4.91 10^6/uL (4.20-5.40) 01/17/24 06:36
Hgb 10.3 g/dL (12.0-16.0) L 01/17/24 06:36
Hct 32.2 % (37.0-47.0) L 01/17/24 06:36
MCV 65.6 fL (81.0-99.0) L 01/17/24 06:36
MCH 21.0 pg (27.0-31.0) L 01/17/24 06:36
MCHC 32.0 g/dL (33.0-37.0) L 01/17/24 06:36
RDW 15.6 % (11.5-14.5) H 01/17/24 06:36
Plt Count 323 10^3/uL (130-400) 01/17/24 06:36
MPV 10.0 fL (7.4-10.4) 01/17/24 06:36
Abs Immat Gran (auto) 0.1 10^3/uL (0-0.05) H 01/16/24 18:09
Absolute Neuts (auto) 4.9 10^3/uL (1.4-6.5) 01/16/24 18:09
Absolute Lymphs (auto) 2.8 10^3/uL (1.2-3.4) 01/16/24 18:09
Absolute Monos (auto) 1.1 10^3/uL (0.1-0.6) H 01/16/24 18:09
Absolute Eos (auto) 0.1 10^3/uL (0-0.7) 01/16/24 18:09
Absolute Basos (auto) 0.1 10^3/uL (0-0.2) 01/16/24 18:09
Immature Gran % 0.6 % (0-0.5) H 01/16/24 18:09
Neutrophils % 54.7 % (42.2-75.2) 01/16/24 18:09
Lymphocytes % 30.6 % (20.5-51.1) 01/16/24 18:09
Monocytes % 12.5 % (1.7-9.3) H 01/16/24 18:09
Eosinophils % 0.9 % (0-6) 01/16/24 18:09
Basophils % 0.7 % (0-2) 01/16/24 18:09
Creatinine 0.5 mg/dL (0.6-1.0) L 01/17/24 06:36
Vital Signs
Vital Signs
Temp Pulse Resp BP Pulse Ox
98.1 F 63 10 143/77 100
01/17/24 11:00 01/17/24 12:09 01/17/24 12:09 01/17/24 12:09 01/17/24 12:09
--- NOTE | 2024-01-17 15:14 | PTCARENOTE ---
Patient received Vancomycin IV prior to procedure. Approx 10-15 min after infusion started, patient started to c/o itching at site and RN noted redness on right arm, where infusion was administered. Vancomycin infusion stopped and spoke to Madelin CASTILLO.
Vancomycin was not given and a different antibiotic was ordered for procedure. Patient remained stable.
--- NOTE | 2024-01-17 15:32 | ITS.CL.PACE ---
Reservations Agent - Pacemaker Implant
Pacemaker Implant
Procedure Report:
Date of Procedure: January 17, 2024.
Procedure: Pacemaker Implantation. Right upper extremity venogram.
Indication: The pacemaker is for the treatment of nonreversible symptomatic bradycardia due to sinus node dysfunction. Paroxysmal atrial fibrillation with symptomatic conversion pauses.
Performing physician: Tomas Waddell MD, [facility].
Facto VIII was administered prior to the procedure and will be given for 2 doses after the pacemaker as was done for her knee surgery in Sep 2023. She had no bleeding complications with the knee surgery. Hematology and pharmacy assisted in handling
the patient's hematologic disorder.
Implants:
Pulse Generator: [id number]; Model# [id number]; Serial# [id number].
RA Lead: Medtronic; Model# 5076-45cm; Serial# [id number].
RV Lead: Medtronic; Model# 3830-69cm; Serial# [id number].
Technique: A time out was performed. A 10 mL upper extremity venogram demonstrated patent right axillary, cephalic, and subclavian veins. The procedure site was identified. The patient was anesthetized by the anesthesia service. Preoperative
cefazolin was administered. The patient was prepped and draped in the usual fashion. Local anesthetic was applied to the right prepectoral subcutaneous tissue. A 3 inch incision was made along the right deltopectoral groove. Dissection was carried
to the fascia. The right cephalic vein was easily isolated and proximal and distal control with suture. Using a micropuncture needle to access the cephalic vein under direct visualization a wire was advanced into the central circulation. A 7 Fr
introducer was placed to allow a second 0.35 J wire to be advanced. The leads were introduced with hemostatic peel away introducer sheaths. The RV lead was placed using utilizing the Starfish 360 His delivery catheter ([id number]) that was advanced to the
left bundle area as confirmed by fluoroscopy in the [place] and [place] projections. The lead tip was advanced. PVC morphology was reviewed. When a satisfactory location was identified (W pattern observed) the lead was screwed into position with serial
turns. Septal engagement was confirmed with gentle torque applied to the guide sheath. After each series of turns (2-3) unipolar sensed morphology and impedance, and paced morphology of V1 was analyzed. The lead was further advanced until
satisfactory morphology and electrical characteristics were confirmed. The RV lead was placed in the second location evaluated. The long guiding sheath was cut and removed from the RV without change in lead position, impedance, sensing, or capture.
The ventricular lead was secured to the pectoralis muscle and fascia with two 0-silk sutures. The atrial lead was placed in the right atrial appendage. 8 volt pacing from each lead did not capture the diaphragm. The atrial leads was secured to the
pectoralis muscle and fascia. A subcutaneous pocket was created with Bovie cautery. Hemostasis was excellent. The leads were appropriately attached to the device. The pocket was irrigated with antibiotic solution. The device and leads were placed in
the pocket. The incision was closed in three layers with absorbable suture. Steri-strips and a silver impregnated dressing were placed. Estimated blood loss was 5 ml. There were no complications. Fluoroscopy time 4.9 minutes and DAP 1.54 mGyCM2.
The device was then interrogated after skin closure.
Lead Analysis:
RA lead: P: 2.1 mV; Threshold: 0.75 V @ 0.4 ms; Impedance: 912 ohms.
RV lead (bipolar): R: 8.8 mV; Threshold: 0.5 V @ 0.4 ms; Impedance: 855 ohms.
RV lead (unipolar): R: 10 mV; Threshold: 0.75 V @ 0.4 ms; Impedance: 703 ohms.
Paced QRS characteristics (bipolar): V1 has Qr morphology and measures 115 ms in duration, LVAT (stim to peak V5/V6) is 90 ms, and R peak V1 to R peak V6 is 14 ms.
Final Programming: MVP (AAIR to DDDR) 60-130 bpm.
Conclusion: Uncomplicated dual chamber Medtronic pacemaker implant. The pacing system is MRI conditional. The RV successfully engages the left bundle area (conduction system pacing).
Recommendation: Routine post pacemaker care.
cc: SANDRA Smith and Raphael Fernandez MD.
[2024-01-17] MEDS: TYLENOL 650 MG PO ×2 (15:34→22:23)
[2024-01-17] MEDS: REFRESH EYE DROPS (PF) 1 DROPS OPHTH (18:23)
--- NOTE | 2024-01-17 18:45 | W.DCSUMMARY ---
Discharge Summary
Discharge Data
Date of Admission: 01/16/24
Date of Discharge: 01/20/24
-
Pending Results: Yes
Hospital Course
78-year-old female with past medical history significant for acquired hypothyroidism s/p surgery, recent diagnosis of A-fib with sinus pauses greater than 6 seconds, essential hypertension, thalassemia and von Willebrand disease presents to the
hospital for pacemaker placement after being referred by her manager lean to the hospital (Dr. Fernandez).
Hospital course-
Received her pacemaker placement in the noon today, and she received of recombinant factor VIII to decrease her risk of bleeding from the procedure. Patient remained stable during and after the procedure. Her repeat echocardiogram showed no
evidence for hemorrhagic pericardial effusion. Patient is discharged home.
Discharge Plan
-
Patient Disposition: Home (Routine Discharge)
Discharge Diagnosis/Procedures: Pacemaker implant
Paroxysmal Atrial Fibrillation with Conversion Pauses status post Pacemaker placement on 01/17/24
Sick Sinus Syndrome status post Pacemaker placement on 01/17/24
Von Willebrand Disease with history of requiring Humate P during surgery - unclear subtype - bleeding disorder w/ bleeding complications from past procedures
Chronic microcytic anemia w/ beta thalassemia trait
Recently (September 2023) underwent right total knee arthroplasty at [place] w/o bleeding complications w/ the use of Humate P prior to procedure and then every 12 hours x2 additional doses post-op
Essential Hypertension
Post-Surgical Hypothyroidism
Recent Right Upper Eyelid Stye
History of Non-Hodgkin Lymphoma involving Stomach s/p Chemotherapy and Radiation
History of Breast Cancer status post Left Lumpectomy
Condition: Fair
Diet: Low Cholesterol and Low Sodium
Additional Activity: Restrict your arm motion above your head, and restrict reaching your back.
Driving Restrictions: No driving for 1 week
Bathing Restrictions: OK to Shower
Blood Work: Check CBC, BMP and Magnesium in 3 to 4 days with your primary care provider's office
Activity Restrictions/Additional Instructions:
Contact your primary care physician's office, Dr. Fernandez's (manager lean's) office and pharmacy analyst office outpatient for very close (within 1 to 3 weeks) follow-up.
Stand Alone Forms: DC Inst - Implanted Device
Referrals:
[facility] [Provider Group] - 01/27/24 3:20 pm (Incision check appointment)
Lashell Childress CRNP [Family Provider] -
Additional Discharge Medication Instructions: Metoprol Succinate has been increased in frequency to 25 mg BID -- new prescription has been sent to your pharmacy.
Prescriptions:
New
metoprolol succinate 25 mg Tablet Extended Release 24 Hr
25 mg PO BID Qty: 60 1RF
Continued
lisinopril 40 MG tablet
40 mg PO DAILY
rosuvastatin 5 MG tablet
5 mg PO DAILY
levothyroxine [Synthroid] 75 mcg Tablet
75 mcg PO DAILY
Rx Instructions:
except saturday
doxycycline hyclate 100 mg capsule
100 mg PO BID
Discontinued
metoprolol succinate 25 MG tablet extended release 24 hr
25 mg PO DAILY
Discharge Orders:
Discharge Patient (As Directed); Ordered 01/18/24
Ordered By: Jim Charlton
Discharge Date and Time
Discharge Date/Time: 01/18/24 17:30
Print Language: DANISH
[2024-01-17] MEDS: ANCEF 5 IV (20:27)
[2024-01-17] MEDS: HUMATE-P (FACTOR VIII/VON WILLEBRAND) 15 UNIT IV (22:14)
[2024-01-18] MEDS: ANCEF 5 IV (03:14)
[2024-01-18 03:54] VITALS: BP 141/64
[2024-01-18] MEDS: SYNTHROID 75 MCG PO (05:11)
[2024-01-18 06:00] VITALS: BMI 26.8
[2024-01-18 07:00] VITALS: BP 161/73
--- NOTE | 2024-01-18 07:23 | W.PN.ONC2 ---
Today's Communication / Plan
-
Monitor CBC. Final dose Humate-P this morning 10 AM.
Impression
Impression
sick sinus syndrome/ afib - s/p pacemaker
vWD - unclear subtype w/ bleeding w/ multiple prior procedures - prophylaxis w/ Humate P
Plan
Plan
1. von Willebrand Disease - unclear subtype - bleeding disorder w/ bleeding complications from past procedures
-the patient recently underwent right total knee arthroplasty at [place] w/o bleeding complications w/ the use of Humate P prior to procedure and then every 12 hours x2 additional doses post-op
-would agree w/ following similar protocol for pacemaker
-Humate P was given pre-operatively
-would repeat Humate P dosing - 2nd dose 12 hours post-operatively and consider 3rd dose 12 hours after pending f/u labs/ CBC
-monitor CBC
-follow clinically
Subjective/Objective
Chief Complaint
ACS Heme Onc
Subjective
No c/o. No bleeding. Humate -P pre op, 10 PM last night, and scheduled for last dose 10 am this AM.
Vital Signs:
Vital Signs
Temp Pulse Resp BP Pulse Ox
98.9 F 65 19 141/64 96
01/18/24 03:54 01/18/24 03:54 01/18/24 03:54 01/18/24 03:54 01/18/24 03:54
Lab Results:
Laboratory Data
WBC 7.3 10^3/uL (4.8-10.8) 01/17/24 06:36
Hgb 10.3 g/dL (12.0-16.0) L 01/17/24 06:36
Plt Count 323 10^3/uL (130-400) 01/17/24 06:36
PT 13.7 Sec (11.4-14.6) 01/16/24 18:09
INR 1.00 01/16/24 18:09
APTT 32.1 Sec (23.4-35.0) 01/16/24 18:09
eGFR > 60.00 01/17/24 06:36
Physical Exam
right CW- Dressing clean and dry.
Cardiology: Normal Sinus Rhythm, S1 and S2
Pulmonary: Clear
GI: Soft
[2024-01-18] MEDS: CRESTOR 5 MG PO (07:45)
[2024-01-18] MEDS: ZESTRIL 40 MG PO (07:45)
[2024-01-18] MEDS: VIBRAMYCIN 100 MG PO (07:45)
--- NOTE | 2024-01-18 08:03 | W.PN.HOSP.TC ---
Today's Communication/Plan
-
Discharge today
Assessment / Plan
Assessment / Plan
Physical Exam
General: Not in acute distress
HEENT: Normocephalic
Respiratory: Clear to Auscultation Bilaterally
Cardiac: S1/S2 and Regular Rhythm
GI: Soft and Non Tender. Positive bowel sounds.
Musculoskeletal: No Cyanosis and No Edema
Skin: Warm and Dry
Neuro: Awake, Alert, Oriented and Nonfocal/grossly intact
Assessment/Plan
This is a 78-year-old female who has a past medical history significant for hypothyroidism status post thyroid surgery, hyperlipidemia, thalassemia and history of von Willebrand disease diagnosed several years ago and followed by hematology
presented to the emergency department via cardiology (sent in by Dr. Fernandez) for palpitations and sinus pauses. She reported a longstanding history of dizziness which she described as sudden onset of weakness and palpitations. She put off testing
to left that she had orthopedic surgery. She recently completed a 10-day monitoring and the report showed atrial fibrillation with sinus pauses during transitions. She had pauses for as long as 6 seconds on occasions. Once this was determined she
was referred to the emergency department immediately. Patient had no syncopal episodes. She had no recent falls. She denied any chest pain. She has no history of strokes. She denies history of CHF or diabetes.
In the ED she was afebrile, hemodynamically stable and in no acute distress. ECG showed normal sinus rhythm at a rate of 68 with no ischemic findings. Her labs are unremarkable except Hgb 9.9, baseline 10.4.
Paroxysmal Atrial Fibrillation with Conversion Pauses status post Pacemaker placement on 01/17/24
Sick Sinus Syndrome status post Pacemaker placement on 01/17/24
-Cardiology Consulted, appreciate their evaluation and recommendations
-Monitor on Telemetry
-No Eliquis as per cardiology and hematology
-Continue Toprol XL 25 PO BID, as per cardiology
Von Willebrand Disease with history of requiring Humate P during surgery - unclear subtype - bleeding disorder w/ bleeding complications from past procedures
Chronic microcytic anemia w/ beta thalassemia trait
-Hematology was consulted, appreciate their evaluation and recommendations
-Received final dose Humate-P this morning, as per hematology
-Recheck CBC outpatient with PCP
Recently underwent right total knee arthroplasty at [place] w/o bleeding complications w/ the use of Humate P prior to procedure and then every 12 hours x2 additional doses post-op
Essential Hypertension
-Continue lisinopril
Post-Surgical Hypothyroidism
-Continue levothyroxine
Recent Right Upper Eyelid Stye
-Complete coarse of doxycycline
Hx Non-Hodgkin Lymphoma involving Stomach s/p Chemotherapy and Radiation
Hx Breast Cancer s/p Left Lumpectomy
DVT proph: SCDs
Code Status: Full Code
More than 30 minutes spent in discharge including
Final examination of the patient
Summarizing hospital stay
Instructions for continuing care to all relevant caregivers
Preparation of discharge records, prescriptions, and referral forms
Total time spent (in minutes): 38
Anticipated Discharge: Today
Subjective/Interval History
-
Date of Service: January 18, 2024
Patient was seen and examined. She reported feeling palpitations, denied any significant chest pain or shortness of breath.
Objective Data
-
Labs:
Laboratory Results
01/18/24
07:47
WBC Pending
Hgb Pending
Hct Pending
Plt Count Pending
Sodium Pending
Potassium Pending
Chloride Pending
Carbon Dioxide Pending
BUN Pending
Creatinine Pending
Glucose Pending
Calcium Pending
Vital Signs:
Vital Signs
Temp Pulse Resp BP Pulse Ox
98.9 F 65 19 141/64 96
01/18/24 03:54 01/18/24 03:54 01/18/24 03:54 01/18/24 03:54 01/18/24 03:54
I&O
01/17/24 01/18/24 01/19/24
06:59 06:59 06:59
Intake Total 480 / 480 240 / 240
Balance 480 / 480 240 / 240
[2024-01-18 08:19] LABS: Blood Urea Nitrogen 14 mg/dl (7-17); Calcium 9.4 mg/dl (8.4-10.2); Carbon Dioxide 26 mmol/L (22-30); Chloride 101 mmol/L (98-107); Estimated Creatinine Clearance 60 ml/min; Glucose 89 mg/dl (70-99); Magnesium 2.1 mg/dl (1.6-2.3); Potassium 4.3 mmol/L (3.5-5.1); Sodium 138 mmol/L (135-145); eGFR > 60.00
[2024-01-18 08:33] LABS: Hematocrit 30.8 % (37.0-47.0); Hemoglobin 9.8 g/dL (12.0-16.0); Mean Corp Hgb Conc. 31.8 g/dL (33.0-37.0); Mean Corpuscular Hgb 20.6 pg (27.0-31.0); Mean Corpuscular Volume 64.7 fL (81.0-99.0); Mean Platelet Volume 9.6 fL (7.4-10.4); Platelet Count 314 10^3/uL (130-400); Red Blood Cell Count 4.76 10^6/uL (4.20-5.40); Red Cell Dist. Width 15.4 % (11.5-14.5); White Blood Cell Count 7.2 10^3/uL (4.8-10.8)
--- NOTE | 2024-01-18 11:01 | W.PN.CD ---
Addendum entered and electronically signed by Thompson Quiroz MD 01/18/24 15:48:
78 yo female with paroxysmal A fib and conversion pauses, now s/p PPM 01/16. Doing well, no complaints. Exam with RRR, no murmurs, no edema. CXR: no PTX. Tele: brief A fib this AM, now sinus.
Add Toprol XL 25mg bid.
Continue lisinopril 40mg daily.
EP communication reviewed: no OAC on discharge. To be discussed as outpatient.
Follow up is in chart.
Discharge planning.
Original Note:
Today's Communication / Plan
-
d/c on metoprolol for AF
follow up 01/27/24 for IC
Impression / Plan
-
Afib - new onset on outpatient cardiac cath tech.
- rapid ventricular response and tachybrady noted.
- brief AF this am, now back in NSR
- start metoprolol
- symptomatic conversion pauses up to 6 seconds noted on outpatient monitor.
-s/p PPM
- [id number] score is 4 (female, age, HTN),OAC to be reviewed as OP with Dr. Fernandez and hematology.
Conversion pauses - symptomatic.
-up to 6 seconds.
-s/p PPM
-Incision stable , R arm restrictions review.
Mod MR/TR:
-normal EF
HTN - stable on meds, continue.
Von Willebrands disease - chronic.
- followed by hematology Dr. Zafar at [facility].
- also h/o thalassemia.
- hematology following.
Physical Exam
Vital Signs/Labs
Vital Signs
Temp Pulse Resp BP Pulse Ox
98.5 F 65 17 161/73 97
01/18/24 07:00 01/18/24 07:00 01/18/24 07:00 01/18/24 07:00 01/18/24 07:00
01/17/24 01/18/24 01/19/24
06:59 06:59 06:59
Actual Weight 58.258 kg 58.06 kg
01/18/24 07:47
01/18/24 07:47
PT 13.7 Sec (11.4-14.6) 01/16/24 18:09
INR 1.00 01/16/24 18:09
APTT 32.1 Sec (23.4-35.0) 01/16/24 18:09
Magnesium 2.1 mg/dl (1.6-2.3) 01/18/24 07:47
Physical Exam
Constitutional: No acute distress
Cardiovascular: Rhythm & rate is regular and Pedal edema is absent
Respiratory: Respiratory effort normal and Lungs clear to auscul.
Neuro/Psych: AO x 3
Other: Cardiac Device Site (R pectoral incision with dressing, no hematoma )
Data Reviewed
-
Date of Service: January 18, 2024
Echo: Report Reviewed by me (01/17/24 Echo Estimated LVEF 60-65%. Mild/moderate mitral regurgitation. Mild/moderate tricuspid regurgitation.)
[2024-01-18] MEDS: TOPROL XL 25 MG PO (11:12)
[2024-01-18] MEDS: HUMATE-P (FACTOR VIII/VON WILLEBRAND) 15 UNIT IV (11:12)
[2024-01-18 11:42] VITALS: BP 119/61
[2024-01-18 15:00] VITALS: BP 112/66
--- NOTE | 2024-01-18 16:22 | CM ---
Reviewed chart, met with patient to obtain information for assessment. Patient stated that her sister lives with her in a bi level home with three steps to enter. She does have the ability to be able to have a first floor set up. Patient described
herself as independent with her ADLs, personal care, dressing and bathing. She ambulates with a cane. 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 She can drive and can transport herself to all of her appointments and does all of
her own shopping.
She denied any DME in her home besides the cane.
She has not had VN services
She has only done outpatient rehab, no SNF.
Patient has a prescription plan and uses, [facility] for all of her medications.
Patient's PCP is, Lashell Childress.
Patient stated that she would like to return home when she is stable for discharge. She signed IMM in anticipation of discharge today. (Per RN).
Plan: Case management will continue to follow and assist with discharge planning. Home when cleared for discharge.
== END 2024-01-18 17:30 | disposition home or self-care (01) | DRG 243 ==
LOC: 3 WEST ACU 20:24
PROVIDERS: Nurse Practitioner Adult Health; Physician Assistant Medical; ADMITTING PHYSICIAN Internal Medicine; ATTENDING PHYSICIAN Hospitalist; EMERGENCY PHYSICIAN Emergency Medicine; FAMILY PHYSICIAN Nurse Practitioner Adult Health; OTHER PHYSICIAN Internal Medicine Cardiovascular Disease; OTHER PHYSICIAN Internal Medicine Hematology & Oncology
PROC: B51M1ZZ Fluoroscopy of Right Upper Extremity Veins using Low Osmolar Contrast (ICD-10-PCS; 2024-01-17)
PROC: 0JH606Z Insertion of Pacemaker, Dual Chamber into Chest Subcutaneous Tissue and Fascia, Open Approach (ICD-10-PCS; 2024-01-17)
PROC: 02H63JZ Insertion of Pacemaker Lead into Right Atrium, Percutaneous Approach (ICD-10-PCS; 2024-01-17)
PROC: 02HK3JZ Insertion of Pacemaker Lead into Right Ventricle, Percutaneous Approach (ICD-10-PCS; 2024-01-17)
DX: I48.0 Paroxysmal atrial fibrillation (principal); D68.00 Von Willebrand disease, unspecified; Z87.891 Personal history of nicotine dependence; I50.9 Heart failure, unspecified; I11.0 Hypertensive heart disease with heart failure; E89.0 Postprocedural hypothyroidism; H00.011 Hordeolum externum right upper eyelid; I49.5 Sick sinus syndrome; D56.3 Thalassemia minor; D50.9 Iron deficiency anemia, unspecified
CPT/HCPCS: 93308; 33208; 71045; 80048; 80053; 83735; 84443; 85025; 85027; 85610; 85730; 86803; 86850; 86900; 86901; 93005; 93306; 93321; 93325; 99285; C1769; C1785; C1887; C1892; C1898; J7183; Q9967

== ENCOUNTER → 2024-01-22 06:55 | Outpatient (REF) | payer MEDICARE, OTHER, SELFPAY ==
[2024-01-22 09:53] LABS: INR 0.97; PT 13.4 Sec (11.4-14.6)
[2024-01-22 10:18] LABS: % Eosinophils 2.6 % (0-6); % Immature Granulocytes 0.4 % (0-0.5); % Lymphocytes 23.4 % (20.5-51.1); % Monocytes 12.1 % (1.7-9.3); % Neutrophils 60.5 % (42.2-75.2); Absolute Basophils 0.1 10^3/uL (0-0.2); Absolute Eosinophils 0.2 10^3/uL (0-0.7); Absolute Lymphocytes 1.9 10^3/uL (1.2-3.4); Absolute Neutrophils 4.8 10^3/uL (1.4-6.5); Hematocrit 34.4 % (37.0-47.0); Hemoglobin 11.1 g/dL (12.0-16.0); Mean Corp Hgb Conc. 32.3 g/dL (33.0-37.0); Mean Corpuscular Hgb 20.8 pg (27.0-31.0); Mean Corpuscular Volume 64.4 fL (81.0-99.0); Nucleated Red Blood Cells % 0 %; Platelet Count 294 10^3/uL (130-400); Red Blood Cell Count 5.34 10^6/uL (4.20-5.40); Red Cell Dist. Width 15.9 % (11.5-14.5)
[2024-01-22 10:30] LABS: ALT (SGPT) 17 U/L (0-35); AST (SGOT) 25 U/L (14-36); Albumin 4.7 g/dl (3.5-5.0); Alkaline Phosphatase 60 U/L (38-126); Blood Urea Nitrogen 27 mg/dl (7-17); Calcium 10.1 mg/dl (8.4-10.2); Carbon Dioxide 28 mmol/L (22-30); Chloride 98 mmol/L (98-107); Glucose 89 mg/dl (70-99); Magnesium 2.2 mg/dl (1.6-2.3); Potassium 4.9 mmol/L (3.5-5.1); Sodium 137 mmol/L (135-145); Total Bilirubin 0.4 mg/dl (0.2-1.3); Total Protein 7.5 g/dl (6.3-8.2); eGFR > 60.00
[2024-01-22 11:06] LABS: TSH Reflex To Free T4 0.63 uIU/ml (0.47-4.68)
== END ==
LOC: HWLAB 06:55
PROVIDERS: ATTENDING PHYSICIAN Specialist; FAMILY PHYSICIAN Nurse Practitioner Adult Health
DX: I10 Essential (primary) hypertension (principal); Z95.0 Presence of cardiac pacemaker; R00.1 Bradycardia, unspecified; C50.312 Malignant neoplasm of lower-inner quadrant of left female breast; D69.9 Hemorrhagic condition, unspecified; Z17.0 Estrogen receptor positive status [ER+]; S42.202A Unspecified fracture of upper end of left humerus, initial encounter for closed fracture; I48.0 Paroxysmal atrial fibrillation
CPT/HCPCS: 36415; 80053; 83735; 84443; 85025; 85240; 85245; 85246; 85247; 85610; 85730

== ENCOUNTER → 2024-06-09 07:45 | Outpatient (REF) | payer MEDICARE, OTHER, SELFPAY | LOC: HWRAD 07:45 | PROVIDERS: ATTENDING PHYSICIAN Nurse Practitioner Adult Health | DX: D68.00 Von Willebrand disease, unspecified (principal); Q67.0 Congenital facial asymmetry; R09.89 Other specified symptoms and signs involving the circulatory and respiratory systems | CPT/HCPCS: 70450; 71046 ==

== ENCOUNTER → 2024-06-19 07:00 | Outpatient (REF) | payer MEDICARE, OTHER, SELFPAY | LOC: HWLAB 07:00 | PROVIDERS: ATTENDING PHYSICIAN Nurse Practitioner Adult Health | DX: R29.810 Facial weakness (principal) | CPT/HCPCS: 36415; 86618 ==

== ENCOUNTER → 2024-06-23 14:08 | Outpatient (REF) | payer MEDICARE, OTHER, SELFPAY | LOC: MRI 14:08 | PROVIDERS: ATTENDING PHYSICIAN Nurse Practitioner Adult Health | DX: R29.810 Facial weakness (principal); I10 Essential (primary) hypertension; I48.0 Paroxysmal atrial fibrillation | CPT/HCPCS: 70553; 76014; 76015; A9575 ==

== ENCOUNTER 2024-06-25 11:32 | Inpatient (IN) | payer MEDICARE, OTHER, SELFPAY ==
[2024-06-08 09:43] LABS: Hematocrit 32.1 % (37.0-47.0); Hemoglobin 10.5 g/dL (12.0-16.0); Mean Corp Hgb Conc. 32.7 g/dL (33.0-37.0); Mean Corpuscular Hgb 22.3 pg (27.0-31.0); Mean Corpuscular Volume 68.2 fL (81.0-99.0); Mean Platelet Volume 10.1 fL (7.4-10.4); Platelet Count 262 10^3/uL (130-400); Red Blood Cell Count 4.71 10^6/uL (4.20-5.40); Red Cell Dist. Width 15.7 % (11.5-14.5); White Blood Cell Count 8.8 10^3/uL (4.8-10.8)
[2024-06-08 10:00] LABS: Glycohemoglobin (HgbA1c) 5.4 % (4.0-5.6)
[2024-06-08 10:18] LABS: ALT (SGPT) 20 U/L (0-35); AST (SGOT) 21 U/L (14-36); Albumin 4.5 g/dl (3.5-5.0); Alkaline Phosphatase 60 U/L (38-126); Blood Urea Nitrogen 29 mg/dl (7-17); Calcium 9.6 mg/dl (8.4-10.2); Carbon Dioxide 25 mmol/L (22-30); Chloride 102 mmol/L (98-107); Glucose 82 mg/dl (70-99); HDL Cholesterol 58 mg/dl; LDL Cholesterol, Calculated 70 mg/dl; Potassium 4.9 mmol/L (3.5-5.1); Sodium 138 mmol/L (135-145); Total Bilirubin 0.7 mg/dl (0.2-1.3); Total Cholesterol 151 mg/dl (50-199); Total Protein 6.8 g/dl (6.3-8.2); Triglyceride 118 mg/dl (10-149); Very Low Density Lipoprotein 23 mg/dl (0-30); eGFR > 60.00
[2024-06-08 10:41] LABS: TSH Reflex To Free T4 1.05 uIU/ml (0.47-4.68)
[2024-06-08 13:32] VITALS: BMI 27.7
[2024-06-17 08:40] VITALS: BMI 27.7
--- NOTE | 2024-06-23 14:44 | W.PN.UPDATE ---
Update Note
Progress Note Update
based on weight--Humate P-
1 hour b/f surgery 2488Units--same dose to be repeat Q12 hours x2 post-op
[2024-06-25] VITALS (15 sets, daily range): BP systolic 114–145; BP diastolic 59–93; BMI 27.7
[2024-06-25] MEDS: TYLENOL 650 MG PO ×3 (12:45→20:09)
[2024-06-25] MEDS: NORMOSOL-R/PLASMALYTE-A 1000 IV ×2 (12:45→20:08)
[2024-06-25] MEDS: MOBIC 15 MG PO (12:45)
[2024-06-25] MEDS: HUMATE-P (FACTOR VIII/VON WILLEBRAND) 25 UNIT IV (13:30)
--- NOTE | 2024-06-25 15:38 | W.PN.UPDATE ---
Update Note
Progress Note Update
L TKA 06/25/24-S[place]re
DVT ppx Eliquis + SCD
Von Willebrand's as well as beta thalassemia.
--hemoglobin will be monitored closely. Humate was advised and has
been utilized following prior surgeries including joint replacement
and recent pacemaker. This was advised perioperatively- both pre/
intra and post op. It will be continued Q 12 hours, until patient
is discharged. Decadron will be dosed while inpatient and prescribed
postoperatively to enhance platelet production.
( ---based on weight--Humate P-
1 hour b/f surgery 2488Units--same dose to be repeat Q12 hours x2 post-op)
Paroxysmal atrial fibrillation, tachy-lynda syndrome.
-patient will be placed on gas inspector and continue her beta gary
uninterrupted. Eliquis 5mg bid POD#4-5 if hemodynamically stable
Pain control-Oxy per patient request
PMH:
1. Osteoarthritis status post right total knee arthroplasty 09/2023.
2. Hyperlipidemia.
3. Paroxysmal atrial fibrillation on Eliquis.
4. 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
5. Von Willebrand's.
6. Thalassemia..
7. Hodgkin's lymphoma per PCP note.
8. Gastric cancer 1999 s/p chemo, radiation.
9. Invasive ductal breast carcinoma, 2023 lower s/p left lumpectomy
with lymph node dissection, chemo, radiation.
10. Graves disease.
11. Hypothyroidism.
12. Interstitial fibrosis on CT 2022.
13. Osteopenia.
14. Vitamin D deficiency.
--- NOTE | 2024-06-25 16:03 | W.DS.TRANS ---
DC Summary - General Office Dispatcher
-
Discharge Instructions:
Sleep Apnea Risk Low
Discharge Diagnosis/Procedures L TKA 06/25/24-S[place]re
Diet As tolerated
Activity With Walker,With assistance
Additional Activity Adequate hydration, minimize Oxy and wear TEDs
stockings to prevent low blood pressure/
dizziness
Driving Restrictions No driving
Bathing Restrictions OK to Shower
Other Services PT
Instructions:
Stand-Alone Forms: Total Hip/Knee Replacement D/C
Changes to Home Medications: Yes
Discharge Medications:
DC Medications w/original date entered in [employer]
rosuvastatin 5 mg tablet 5 mg PO DAILY High Cholesterol 05/24/19
levothyroxine 75 mcg tablet (Synthroid) 75 mcg PO MOTUWETHFR Thyroid 10/03/23
carvedilol 25 mg tablet 25 mg PO BID 06/05/24
mecobalamin (vitamin B12) 500 mcg chewable tablet 500 mcg PO DAILY 06/05/24
dexamethasone 4 mg tablet 4 mg PO BID inflammation #6 tabs 06/08/24
mupirocin 2 % topical ointment 1 applic topical BID infection prevention #1 tube 06/08/24
oxycodone 5 mg tablet 5 mg PO Q6H PRN 1 tab moderate pain, 2 tabs severe pain #30 tabs 06/08/24
acetaminophen 325 mg tablet (Tylenol) 650 mg (2 x 325 mg) PO QID #1 tab 06/25/24
apixaban 5 mg tablet (Eliquis) 2.5 mg (1/2 x 5 mg) PO BID Blood clot prevention/tx #0 tabs 06/25/24
docusate sodium 100 mg capsule (Colace) 100 mg PO BID stool softner #1 cap 06/25/24
lisinopril 40 mg tablet 40 mg PO BID Blood Pressure #0 tabs 06/25/24
magnesium hydroxide 400 mg/5 mL oral suspension (Milk of Magnesia) 30 ml PO HS PRN constipation #1 mL 06/25/24
sennosides 8.6 mg tablet (Senokot) 17.2 mg (2 x 8.6 mg) PO BID laxative #2 tabs 06/25/24
Home Medication Changes
dexamethasone 4 mg tablet 4 mg PO BID inflammation #6 tabs 06/08/24
mupirocin 2 % topical ointment 1 applic topical BID infection prevention #1 tube 06/08/24
oxycodone 5 mg tablet 5 mg PO Q6H PRN 1 tab moderate pain, 2 tabs severe pain #30 tabs 06/08/24
acetaminophen 325 mg tablet (Tylenol) 650 mg (2 x 325 mg) PO QID #1 tab 06/25/24
apixaban 5 mg tablet (Eliquis) 2.5 mg (1/2 x 5 mg) PO BID Blood clot prevention/tx #0 tabs 06/25/24
docusate sodium 100 mg capsule (Colace) 100 mg PO BID stool softner #1 cap 06/25/24
lisinopril 40 mg tablet 40 mg PO BID Blood Pressure #0 tabs 06/25/24 -PARAMETER
magnesium hydroxide 400 mg/5 mL oral suspension (Milk of Magnesia) 30 ml PO HS PRN constipation #1 mL 06/25/24
sennosides 8.6 mg tablet (Senokot) 17.2 mg (2 x 8.6 mg) PO BID laxative #2 tabs 06/25/24
Pending Results: No
--- NOTE | 2024-06-25 17:21 | OR.RPT ---
Operative Report
Operative Report
Orthopaedic Surgery Operative Note
DATE OF OPERATION: 06/25/2024
PREOPERATIVE DIAGNOSES: Osteoarthritis, left knee.
POSTOPERATIVE DIAGNOSES: Osteoarthritis, left knee.
OPERATION PERFORMED: Left total knee arthroplasty.
SURGEON: Pedrito Stone MD
ASSISTANTS: Wesley Guerrero PA-C who assisted with patient and limb positioning and retraction
ANESTHESIA: General
COMPLICATIONS: None.
ESTIMATED BLOOD LOSS: 20mL
DRAINS: None
TOURNIQUET TIME: 51 minutes.
IMPLANTS:
- Deon Persona CR Femur, size 7
- Deon Persona tibia base plate, size D
- Edon Persona ultracongruent articular surface, 13 mm
INDICATIONS: The patient presented to my office with debilitating left knee pain due to osteoarthritis. We reviewed the natural history of this problem, as well as the risks, benefits, and alternatives of various treatment options. The patient
exhausted all nonoperative treatment options and wished to proceed with knee replacement surgery. The patient understood the risks which included, but were not limited to, bleeding, infection, failure to relieve pain, more pain than preop, damage to
blood vessels and nerves, need for reoperation, mechanical failure of the implants, wound healing problems, stiffness, instability, blood clot, pulmonary embolism, myocardial infarction, pneumonia, arrhythmia, CVA, and . The patient accepted
these risks and wished to proceed. All questions were answered, and informed consent was obtained.
PROCEDURE IN DETAIL: The patient was identified in the preoperative holding area. The left knee was identified as the operative site. The patient was taken in the operating room and placed in a supine position on the operating table. General
anesthesia was performed. IV antibiotics and tranexamic acid were administered. A bump was placed under the left hemipelvis. A well-padded tourniquet was placed on the proximal thigh. All bony prominences were well padded. The left lower extremity
was prepped and draped in the usual sterile fashion.
We performed a surgical time-out. An interarticular block was performed with local anesthetic with epinephrine. The limb was exsanguinated with an Esmarch bandage, then the tourniquet was inflated to 250 mmHg. A midline skin incision was made
followed by a medial parapatellar arthrotomy. A subperiosteal peel was performed on the medial tibia. I excised part of the infrapatellar fat pad to improve our visualization as well as tissue over anterior femur. The patella was everted and the
knee was flexed. I excised the remnants of the anterior and posterior cruciate ligaments as well as tibial and femoral osteophytes with rongeurs.
The knee was flexed, and the extramedullary tibial cutting guide was aligned. [place] was aligned at neutral, rotation was centered on the tibial tubercle, and coronal alignment was aligned with the mechanical axis of the tibia and center of the ankle
joint. The cut height was 2mm off the medial tibia joint surface. The guide was secured into place. The MCL and LCL were protected. The tibia surface was cut. The cut surface was inspected after removal to ensure appropriate height and slope based
on the preoperative plan. The cut was checked with a drop fausto. It was centered nicely at the ankle.
A drill was used to open the femoral canal. The intramedullary distal femoral cutting guide was inserted into the femur. This was set at 5 degrees +0. This was secured into place with three pins. The cut level was checked with an ana wing. The
distal femur was cut through the cutting guide. The IM guide was reinserted to double check that the level of resection was flush and in appropriate alignment.
Kulwant�s line and the transepicondylar axis were marked on the femur. The femoral sizing guide was applied to the anterior femur. Pins were inserted, and the 4-in-1 cutting guide was applied and secured into place. The rotation was compared to
[place]�s line, the transepicondylar axis, and the neutral tibia cut and was found to be appropriate. The width was checked and found to be appropriate and lateralized on the femur. The anterior, posterior, and chamfur cuts were made. A lamina
chief accounting officer was used to open the flexion gap, and posterior osteophytes were removed with a curved osteotome. The remnant medial and lateral meniscus were also removed. I prophylactically cauterized the lateral geniculate arteries. A 10mm spacer block
was applied to the flexion gap and was noted to be balanced medially and laterally. The knee was extended, and the block showed symmetric to extension and flexion gaps.
The tibia was exposed and sized. Rotation was set in line with the tibial tubercle and congruent with the femur. The trial was secured into place with two pins. The trial femur was impacted into place, and a trial articular surface was placed. The
knee was taken through range of motion and noted to be stable throughout the arc of motion without gaping or excess tension. The patella tracked centrally without need for further releases. No full thickness cartilage defects. The superior to
inferior height was less than 29mm.
The trials were removed. The tibia keel was prepared with the punch and the drill. The bone surfaces were irrigated with sterile saline and dried. The cement was mixed in a vacuum mixer. Cement gun was used to apply cement to the tibial surface and
the undersurface of the tibial implant. Cement was pressurized into the tibial canal and tibia surface. The tibial component was impacted into place. Excess cement was removed. Cement was applied to the femoral surface and the femoral component. The
femoral component was impacted into place, and excess cement removed. A trial articular surface was inserted, and the knee was extended while the cement polymerized. The tourniquet was let down, and meticulous hemostasis was achieved. Dilute
betadine was poured into the wound and allowed to soak for 3 minutes. The knee was irrigated with copious normal saline.
Once the cement was polymerized, the trial articular surface was removed. Any excess cement was removed. The knee was trialed, and the final articular surface was selected and inserted into the tibial locking mechanism. The knee was reduced. A fresh
drape was applied to the surgical field.
The arthrotomy was closed with 0-PDS. Once closed, an interarticular block was performed with local anesthetic with epi. The deep dermal layer was closed with 2-0 PDS, and the subcuticular skin was closed with 3-0 monocryl. A Dermabond Prineo
dressing was applied to the skin in full flexion. Once this was completely dry, a sterile waterproof dressing was applied.
The anesthesia team performed an adductor canal block in the OR. The patient awoke from anesthesia without any difficulties. The sponge and instrument counts were correct x2 at the end of the case.
Tae Stone MD
[2024-06-25] MEDS: ROXICODONE 5 MG PO ×2 (17:32→21:59)
[2024-06-25] MEDS: DILAUDID 0.5 MG IV (18:13)
[2024-06-25] MEDS: COREG 25 MG PO (20:08)
[2024-06-25] MEDS: SENOKOT 17.2 MG PO (20:08)
[2024-06-25] MEDS: ELIQUIS 2.5 MG PO (20:09)
[2024-06-25] MEDS: BACTROBAN 2% OINTMENT 1 APPLIC NASAL (20:09)
[2024-06-25] MEDS: COLACE 100 MG PO (20:09)
[2024-06-25] MEDS: DECADRON 4 MG IV (20:10)
[2024-06-25] MEDS: CRESTOR 5 MG PO (20:11)
[2024-06-25] MEDS: ANCEF 5 IV (22:00)
[2024-06-25] MEDS: ZOFRAN 4 MG IV (22:00)
[2024-06-25] MEDS: NEURONTIN 300 MG PO (22:00)
[2024-06-26] VITALS (7 sets, daily range): BP systolic 93–161; BP diastolic 59–84; PULSE 65; O2SAT 95–96
[2024-06-26] MEDS: TYLENOL PO (00:55)
[2024-06-26] MEDS: HUMATE-P (FACTOR VIII/VON WILLEBRAND) 25 UNIT IV ×2 (02:42→14:19)
[2024-06-26] MEDS: ROXICODONE 5 MG PO (03:19)
[2024-06-26] MEDS: TYLENOL 650 MG PO ×4 (03:19→17:45)
[2024-06-26] MEDS: ANCEF 5 IV (06:15)
[2024-06-26] MEDS: SYNTHROID 75 MCG PO (06:17)
--- NOTE | 2024-06-26 06:44 | PTCARENOTE ---
1999 pt is aaox3. states leg feels fine. pt oriented to room w/ call roberson in reach. pt states she has decrease sensation and numbness to leg.
0 attempted to use bsc w/ RW x2 - pt became nauseous. given zofran w/ +eff.
0000 pt states she has decrease sensation and numbness to leg, but she able to feel nursing touch leg, lift leg, and get to BSC. pp weak. leg stiff but able to move.
--- NOTE | 2024-06-26 08:54 | CM ---
Cm reviewed medical records. CM met with patient paid caregiver Mandeep in room. Patient lives alone, but has a paid caregiver to stay with her 24 hours. Patient has had a history of VN, but is currently not on service. Patient denies history of SNF.
Patient stated that she has all the recommended DME equipment. Patient stated that she has had a previous knee replacement. Patient is active with her PCP. Patient uses [facility] for medication services. Patient stated that she has a two level
home, but stays on the first floor due to knee pain.
Patient confirmed that she has an appointment with [facility] on 06/29.
PLAN: Home with outpatient PT.
Initialized on 06/26/24 08:50 - END OF NOTE
[2024-06-26] MEDS: CRESTOR 5 MG PO (09:31)
[2024-06-26] MEDS: BACTROBAN 2% OINTMENT 1 APPLIC NASAL (09:31)
[2024-06-26] MEDS: COLACE 100 MG PO (09:32)
[2024-06-26] MEDS: COREG PO (09:32)
[2024-06-26] MEDS: ELIQUIS 2.5 MG PO (09:32)
[2024-06-26] MEDS: DECADRON 4 MG IV (09:33)
[2024-06-26] MEDS: SENOKOT 17.2 MG PO (09:33)
[2024-06-26] MEDS: MAALOX 30 ML PO (09:42)
[2024-06-26] MEDS: ZOFRAN 4 MG IV (11:18)
--- NOTE | 2024-06-26 11:32 | W.PN.ORTHO ---
Today's Communication / Plan
-
-check CBC by blood draw
-administer last dose of Humate-P when scheduled
-Zofran-Midodrine and iVF
d/c if blood count stable
Assessment
.
Distal Motor Intact: Yes
Dressing:
Clean, dry and intact.
Assessment:
N/V with therapy
Hypotensive-asymptomatic
-Zofran-+ IVF w/ Midodrine -possible vasovagal component to nausea due to BP
Von Willebrand's as well as beta thalassemia.
--hemoglobin will be monitored closely. Humate was advised and has
been utilized following prior surgeries including joint replacement
and recent pacemaker. This was advised perioperatively- both pre/
intra and post op. It will be continued Q 12 hours, until patient
is discharged. Decadron will be dosed while inpatient and prescribed
postoperatively to enhance platelet production.
( ---based on weight--Humate P-
1 hour b/f surgery 2488Units--same dose to be repeat Q12 hours x2 post-op)
Paroxysmal atrial fibrillation, tachy-lynda syndrome.
-stable on night monitor-beta gary continued uninterrupted
Eliquis 5mg bid POD#4-5 if hemodynamically stable
Pain control-Oxy per patient request

PMH:
1. Osteoarthritis status post right total knee arthroplasty 09/2023.
2. Hyperlipidemia.
3. Paroxysmal atrial fibrillation on Eliquis.
4. 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
5. Von Willebrand's.
6. Thalassemia..
7. Hodgkin's lymphoma per PCP note.
8. Gastric cancer 1999 s/p chemo, radiation.
9. Invasive ductal breast carcinoma, 2023 lower s/p left lumpectomy
with lymph node dissection, chemo, radiation.
10. Graves disease.
11. Hypothyroidism.
12. Interstitial fibrosis on CT 2022.
13. Osteopenia.
14. Vitamin D deficiency.
Plan
.
Surgery / Date: L TKA 06/25/24-[facility]
DVT Prophylaxis: Other (DVT ppx Eliquis + SCD)
Activity:
Out of bed.
PT/OT
Discharge Plan: Home w/ Outpatient PT
Subjective
.
.:
Patient resting comfortably.
Vital Signs and Labs
.
Vital Signs and Labs:
Lab Results
06/08/24 07:06
Temp Pulse Resp BP Pulse Ox
97.8 F 62 16 99/60 94
06/26/24 07:10 06/26/24 07:10 06/26/24 07:10 06/26/24 07:10 06/26/24 07:10
Non-invasive Hgb result: 10.2
Physical Exam
-
HEENT: No pallor, cyanosis, or jaundice. Throat clear.
NECK: Supple. No JVD.
RESPIRATORY: Lungs clear to auscultation.
CVS: S1, S2 normal. RRR.� No murmur, rub or gallop.
ABDOMEN: Soft, non-tender. No distension. BS+/normal.
EXTREMITIES: strength equal, no calf pain with palpation
SURG NURSE: AOx3. No focal deficits. instrumentation and controls designer grossly intact
[2024-06-26 12:57] LABS: Hematocrit 23.8 % (37.0-47.0); Mean Corp Hgb Conc. 33.6 g/dL (33.0-37.0); Mean Corpuscular Volume 65.6 fL (81.0-99.0); Mean Platelet Volume 10.1 fL (7.4-10.4); Platelet Count 207 10^3/uL (130-400); Red Blood Cell Count 3.63 10^6/uL (4.20-5.40); Red Cell Dist. Width 14.6 % (11.5-14.5); White Blood Cell Count 13.9 10^3/uL (4.8-10.8)
[2024-06-26] MEDS: ProAmatine 5 MG PO (13:14)
[2024-06-26] MEDS: ROXICODONE 10 MG PO (13:16)
[2024-06-26] MEDS: NORMOSOL-R/PLASMALYTE-A 500 IV (13:18)
== END 2024-06-26 18:30 | disposition home or self-care (01) | DRG 470 ==
LOC: 2 SOUTH 11:32
PROVIDERS: Physician Assistant Medical; ADMITTING PHYSICIAN Orthopaedic Surgery; FAMILY PHYSICIAN Nurse Practitioner Adult Health; REFERRING PHYSICIAN Internal Medicine Cardiovascular Disease
PROC: 0SRD0J9 Replacement of Left Knee Joint with Synthetic Substitute, Cemented, Open Approach (ICD-10-PCS; 2024-06-25)
PROC: 30233V1 Transfusion of Nonautologous Antihemophilic Factors into Peripheral Vein, Percutaneous Approach (ICD-10-PCS; 2024-06-25)
DX: M17.12 Unilateral primary osteoarthritis, left knee (principal); D68.00 Von Willebrand disease, unspecified; Z96.651 Presence of right artificial knee joint; E78.5 Hyperlipidemia, unspecified; I48.0 Paroxysmal atrial fibrillation; D56.1 Beta thalassemia; E89.0 Postprocedural hypothyroidism; M85.80 Other specified disorders of bone density and structure, unspecified site; E55.9 Vitamin D deficiency, unspecified; R11.2 Nausea with vomiting, unspecified; I95.9 Hypotension, unspecified; I49.5 Sick sinus syndrome; Z79.01 Long term (current) use of anticoagulants; Z79.899 Other long term (current) drug therapy; Z85.028 Personal history of other malignant neoplasm of stomach; Z85.3 Personal history of malignant neoplasm of breast; Z85.71 Personal history of Hodgkin lymphoma; Z92.21 Personal history of antineoplastic chemotherapy; Z92.3 Personal history of irradiation; Z95.0 Presence of cardiac pacemaker
CPT/HCPCS: 36415; 70553; 73560; 76014; 76015; 80053; 80061; 83036; 84443; 85027; 86850; 86900; 86901; 87070; 97116; 97162; 97166; 97535; A9575; C1713; C1776; J7183

== ENCOUNTER → 2024-08-20 07:07 | Outpatient (REF) | payer MEDICARE, OTHER, SELFPAY ==
[2024-08-20 11:10] LABS: Albumin 4.1 g/dl (3.5-5.0); Blood Urea Nitrogen 18 mg/dl (7-17); Calcium 9.4 mg/dl (8.4-10.2); Carbon Dioxide 27 mmol/L (22-30); Chloride 105 mmol/L (98-107); Glucose 92 mg/dl (70-99); Phosphorus 4.2 mg/dl (2.5-4.5); Potassium 4.2 mmol/L (3.5-5.1); Sodium 137 mmol/L (135-145); eGFR > 60.00
== END ==
LOC: HWLAB 07:07
PROVIDERS: ATTENDING PHYSICIAN Internal Medicine Cardiovascular Disease; FAMILY PHYSICIAN Nurse Practitioner Adult Health
DX: E87.1 Hypo-osmolality and hyponatremia (principal)
CPT/HCPCS: 36415; 80069

== ENCOUNTER → 2024-09-04 09:22 | Outpatient (REF) | payer MEDICARE, SELFPAY | LOC: HWRCS 09:22 | PROVIDERS: ATTENDING PHYSICIAN Nurse Practitioner Adult Health; REFERRING PHYSICIAN Internal Medicine Cardiovascular Disease | DX: R29.810 Facial weakness (principal); I10 Essential (primary) hypertension; I48.0 Paroxysmal atrial fibrillation | CPT/HCPCS: 93306 ==

== ENCOUNTER → 2024-11-17 12:46 | Outpatient (REF) | payer MEDICARE, OTHER, SELFPAY | LOC: HWRAD 12:46 | PROVIDERS: ATTENDING PHYSICIAN Podiatrist Foot & Ankle Surgery; FAMILY PHYSICIAN Nurse Practitioner Adult Health | DX: M24.652 Ankylosis, left hip (principal); R10.2 Pelvic and perineal pain | CPT/HCPCS: 73502 ==

== ENCOUNTER → 2025-01-19 07:07 | Outpatient (REF) | payer MEDICARE, OTHER, SELFPAY | LOC: HWRAD 07:07 | PROVIDERS: ATTENDING PHYSICIAN Nurse Practitioner Adult Health | DX: Z78.0 Asymptomatic menopausal state (principal) | CPT/HCPCS: 77080 ==